=== PATIENT | female | born 1945 | race Caucasian/White ===

== ENCOUNTER → 2017-08-22 | Outpatient (CLI) | payer MEDICARE | END | disposition home or self-care (01) | LOC: CFH 13:39 | PROVIDERS: ATTEND Internal Medicine Cardiovascular Disease | DX: I08.3 Combined rheumatic disorders of mitral, aortic and tricuspid valves (principal) | CPT/HCPCS: 93306 ==

== ENCOUNTER 2018-04-02 07:43 | Day surgery (SDC) | payer MEDICARE ==
[~2018-04-02] VITALS: Ht 177.8 cm; Wt 109.1 kg
[2018-04-02] MEDS ORDERED: SODIUM CHLORIDE 0.9% 1,000 ML IV ONE (08:19)
[2018-04-02 08:22] VITALS: BP 116/77
[2018-04-02] MEDS ORDERED: DIPHENHYDRAMINE 50 MG/ML, 1ML IVPush ONE (08:30)
[2018-04-02] MEDS ORDERED: METO50TA4 PO (08:43)
[2018-04-02] MEDS ORDERED: ASPI-621 PO (08:43)
[2018-04-02] MEDS ORDERED: GLIP5TAB22 PO (08:43)
[2018-04-02] MEDS ORDERED: FINA5TAB4 PO (08:43)
[2018-04-02] MEDS ORDERED: TAMS0.4C2 PO (08:43)
[2018-04-02] MEDS ORDERED: FENO134C PO (08:43)
[2018-04-02] MEDS ORDERED: CHOL5000 PO (08:43)
[2018-04-02] MEDS ORDERED: ATOR20TA9 PO (08:43)
[2018-04-02] MEDS ORDERED: AMLO5TAB2 PO (08:43)
[2018-04-02] MEDS ORDERED: ENAL20TA PO (08:43)
[2018-04-02] MEDS ORDERED: DIPHENHYDRAMINE 50 MG/ML, 1ML ONE (08:54)
[2018-04-02] MEDS ORDERED: MIDAZOLAM 1 MG/ML, 5ML ONE (09:50)
[2018-04-02] MEDS ORDERED: FENTANYL PF 100 MCG/2ML ONE (09:50)
[2018-04-02] MEDS ORDERED: TICAGRELOR 90 MG TABLET ONE (09:50)
[2018-04-02] MEDS ORDERED: VERAPAMIL 2.5 MG/ML, 2ML ONE (09:50)
[2018-04-02] MEDS ORDERED: HEPARIN 1,000 UNITS/ML, 10ML ONE (09:51)
[2018-04-02] MEDS ORDERED: BIVALIRUDIN 250 MG ONE (09:51)
[2018-04-02] MEDS ORDERED: LIDOCAINE 2%, 2ML ONE (09:51)
[2018-04-02] MEDS ORDERED: SODIUM CHLORIDE 0.9% 1,000 ML IV SCH (11:09)
== END 2018-04-02 13:59 ==
LOC: CACL 07:43
PROVIDERS: ATTEND Internal Medicine Cardiovascular Disease
DX: I25.10 Atherosclerotic heart disease of native coronary artery without angina pectoris (principal); I10 Essential (primary) hypertension; E78.2 Mixed hyperlipidemia; E11.9 Type 2 diabetes mellitus without complications; Z79.82 Long term (current) use of aspirin
CPT/HCPCS: 93456; 99156; 99157; C1769; C1894; J1200; J1644; J2250; J3010; J3490; Q9967; J0583

== ENCOUNTER → 2018-04-05 | Outpatient (CLI) | payer MEDICARE ==
[~2018-04-05] MED LIST: AMLO5TAB2 PO; ASPI-621 PO; ATOR20TA9 PO; CHOL5000 PO; ENAL20TA PO; FENO134C PO; FINA5TAB4 PO; GLIP5TAB22 PO; METO50TA4 PO; TAMS0.4C2 PO
== END | disposition home or self-care (01) ==
LOC: CARD 14:20
PROVIDERS: ATTEND Thoracic Surgery (Cardiothoracic Vascular Surgery)
DX: Z01.811 Encounter for preprocedural respiratory examination (principal); R06.02 Shortness of breath
CPT/HCPCS: 94010; 94060

== ENCOUNTER 2018-04-11 04:08 | Inpatient (IN) | payer MEDICARE ==
[2018-04-10 14:42] LABS: MICROSCOPIC AUTO
[2018-04-10 15:56] LABS: BASOPHILS # (AUTO) 0.04 x10^3/uL (0-0.1); BASOPHILS % (AUTO) 1 % (0-1); EOSINOPHILS # (AUTO) 0.27 x10^3/uL (0-0.4); EOSINOPHILS % (AUTO) 3 % (1-7); LYMPHOCYTES # (AUTO) 2.64 x10^3/uL (1-3.4); LYMPHOCYTES % (AUTO) 31 % (22-44); MD NO; MEAN CORPUSCULAR HEMOGLOBIN 30.8 pg (27.0-34.8); MEAN CORPUSCULAR HGB CONC 33.6 g/dL (32.4-35.8); MEAN CORPUSCULAR VOLUME 91.9 fL (80-100); MEAN PLATELET VOLUME 9.4 fL (7.4-10.4); MONOCYTES # (AUTO) 0.63 x10^3/uL (0.2-0.8); MONOCYTES % (AUTO) 7 % (2-9); NEUTROPHILS # (AUTO) 4.97 x10^3/uL (1.8-6.8); NEUTROPHILS % (AUTO) 58 % (42-75); PLATELET COUNT 277 x10^3/uL (130-400); RED BLOOD COUNT 4.78 x10^6/uL (3.82-5.3); RED CELL DISTRIBUTION WIDTH 15.1 % (9.6-15.2)
[2018-04-10 16:04] LABS: INTERNATIONAL NORMALIZED RATIO 0.96 (0.93-1.1)
[2018-04-10 16:09] LABS: ALBUMIN 3.8 g/dL (3.4-5.0); ANION GAP 8 mmol/L (5-15); CALCIUM 9.3 mg/dL (8.5-10.1); CHLORIDE 111 mmol/L (98-107)
[2018-04-10 16:21] LABS: ALANINE AMINOTRANSFERASE 35 U/L (12-78); ALKALINE PHOSPHATASE 50 U/L (45-117); BILIRUBIN,TOTAL 0.3 mg/dL (0.2-1.0); CREATININE 1.45 mg/dL (0.55-1.02); TOTAL PROTEIN 7.3 g/dL (6.4-8.2)
[2018-04-10 16:34] LABS: HEMOGLOBIN A1C 6.8 % (4.2-6.3)
[~2018-04-11] VITALS: Ht 180.3 cm; Wt 120.0 kg
[2018-04-11] MEDS ORDERED: ALBUMIN HUMAN 5% 500 ML IV PRN (04:30)
[2018-04-11] MEDS ORDERED: INSULIN LISPRO 100 UNITS/ML, PEN SQ-INSULIN SCH (04:30)
[2018-04-11] MEDS ORDERED: CHLORHEXIDINE 15 ML BOTTLE MM SCH (04:30)
[2018-04-11 04:35] VITALS: BP_SYST 109; BP_SYST 137; BP_DIAS 67; BP_DIAS 84
[2018-04-11] MEDS ORDERED: PAPAVERINE 30 MG/ML, 2ML ONE (07:09)
[2018-04-11] MEDS ORDERED: HEPARIN 1,000 UNITS/ML, 10ML ONE (07:09)
[2018-04-11] MEDS ORDERED: THROMBIN 5,000 UNIT VIAL TP ONE ×2 (07:09→09:00)
[2018-04-11] MEDS ORDERED: MIDAZOLAM 10MG/2 ML ONE (07:25)
[2018-04-11] MEDS ORDERED: SUFentanil 50 MCG/ML, 5ML ONE (07:25)
[2018-04-11] MEDS ORDERED: DEXMEDETOMIDINE 200 MCG in SODIUM CHLORIDE 0.9% 48 ML IV SCH (07:30)
[2018-04-11] MEDS ORDERED: REGULAR INSULIN 62.5 UNITS in SODIUM CHLORIDE 0.9% 249.375 ML IV PRN ×2 (07:30→14:15)
[2018-04-11] MEDS ORDERED: MANNITOL PMX 20% 500 ML IVPB PRN (07:30)
[2018-04-11] MEDS ORDERED: PHENYLEPHRINE 10 MG in SODIUM CHLORIDE 0.9% 249 ML IV PRN ×2 (07:30→14:15)
[2018-04-11] MEDS ORDERED: EPINEPHRINE 2 MG in SODIUM CHLORIDE 0.9% 248 ML IV SCH (07:30)
[2018-04-11] MEDS ORDERED: POTASSIUM CHLORIDE 80 MEQ, SODIUM BICARBONATE 8.4% 10 MEQ, MAGNESIUM SULFATE 0.5 GM, LI... IV PRN (07:30)
[2018-04-11] MEDS ORDERED: FENTANYL PF 250 MCG/5ML ONE (07:46)
[2018-04-11] MEDS ORDERED: VASOPRESSIN 20 UNIT/ML, 1ML ONE ×2 (07:46→09:05)
[2018-04-11] MEDS ORDERED: ALBUTEROL SULFATE 200 PUFFS/8.5 GR INH ONE (07:46)
[2018-04-11] MEDS ORDERED: PAPAVERINE 30 MG/ML, 2ML IVPush ONE (08:58)
[2018-04-11] MEDS ORDERED: HEPARIN 1,000 UNITS/ML, 10ML IV ONE (08:59)
[2018-04-11] MEDS: SODIUM CHLORIDE FLUSH 10ML SYR IVF SCH ×3 (09:00→21:02)
[2018-04-11] MEDS ORDERED: MUPIROCIN OINT 2%, 22GM TP SCH (09:00)
[2018-04-11] MEDS ORDERED: PROPOFOL 10 MG/ML, 20ML ONE (11:16)
[2018-04-11] MEDS ORDERED: ROCURONIUM 10MG/ML,5ML ONE ×2 (11:16)
[2018-04-11] MEDS ORDERED: AMINOCAPROIC ACID 250 MG/ML, 20ML ONE ×2 (11:16)
[2018-04-11] MEDS ORDERED: PROTAMINE SULFATE 10 MG/ML, 25ML ONE ×2 (11:16→11:17)
[2018-04-11] MEDS ORDERED: CALCIUM CHLORIDE 10%, 10ML SYR ONE ×2 (14:06→14:07)
[2018-04-11] MEDS ORDERED: SODIUM BICARBONATE 1 MEQ/ML, 50ML VIAL ONE (14:07)
[2018-04-11] MEDS ORDERED: LIDOCAINE 2% 100MG/5ML SYRINGE ONE (14:07)
[2018-04-11] MEDS ORDERED: HEPARIN 1,000 UNITS/ML, 30ML ONE (14:08)
[2018-04-11] MEDS ORDERED: ALBUMIN HUMAN 25% 50 ML ONE (14:08)
[2018-04-11] MEDS ORDERED: DOBUTAMINE 250 MG in SODIUM CHLORIDE 0.9% 230 ML IV PRN (14:15)
[2018-04-11] MEDS ORDERED: DEXMEDETOMIDINE 200 MCG in SODIUM CHLORIDE 0.9% 48 ML IV PRN (14:15)
[2018-04-11] MEDS ORDERED: SODIUM CHLORIDE 0.9% 1,000 ML IV PRN (14:15)
[2018-04-11] MEDS ORDERED: NITROGLYCERIN/D5W PMX 250 ML IV PRN (14:15)
[2018-04-11] MEDS ORDERED: DEXTROSE 50%, 50ML SYRINGE IVPush PRN (14:30)
[2018-04-11] MEDS ORDERED: GLUCAGON 1 MG IM PRN (14:30)
[2018-04-11] MEDS ORDERED: BISACODYL 5 MG EC TABLET PO PRN (14:30)
[2018-04-11] MEDS ORDERED: PROCHLORPERAZINE 5 MG/ML, 2ML IVPush PRN (14:30)
[2018-04-11] MEDS ORDERED: INSULIN REGULAR 100 UNITS/ML, 3ML VIAL IVPush PRN (14:30)
[2018-04-11] MEDS ORDERED: BISACODYL 10 MG SUPP PR PRN (14:30)
[2018-04-11] MEDS ORDERED: EPINEPHRINE 2 MG in SODIUM CHLORIDE 0.9% 248 ML IV PRN (14:30)
[2018-04-11] MEDS ORDERED: DEXTROSE 4 GM TAB.CHEW PO PRN (14:30)
[2018-04-11] MEDS ORDERED: SODIUM BICARB 8.4%, 50ML SYRINGE IV PRN (14:30)
[2018-04-11] MEDS ORDERED: ACETAMINOPHEN 650 MG SUPP PR PRN (14:30)
[2018-04-11] MEDS ORDERED: MIDAZOLAM 1 MG/ML, 5ML IVPush PRN (14:30)
[2018-04-11 14:57] LABS: GLUCOSE BY BLOOD GAS ANALYZER 159 mg/dL (70-110); HEMOGLOBIN BY BLOOD GAS ANALYZ 10.7 g/dL (14.0-18.0); POTASSIUM BY BLOOD GAS ANALYZR 4.1 mmol/L (3.6-5.5)
[2018-04-11] MEDS ORDERED: MAGNESIUM SULFATE 1 GM in SODIUM CHLORIDE 0.9% 50 ML IVPB SCH (15:00)
[2018-04-11] MEDS ORDERED: VASOPRESSIN 50 UNIT in SODIUM CHLORIDE 0.9% 247.5 ML IV PRN (15:00)
[2018-04-11] MEDS: KSCALE TO 4.5 IV SCH ×2 (15:00→21:00)
[2018-04-11 15:07] LABS: INTERNATIONAL NORMALIZED RATIO 1.32 (0.93-1.1); PROTHROMBIN TIME 13.7 Seconds (9.6-11.5)
[2018-04-11] MEDS: INSULIN LISPRO 100 UNITS/ML, PEN SQ-INSULIN SCH ×2 (16:00→21:00)
[2018-04-11] MEDS: MAGNESIUM SULFATE PMX 2GM/50ML 25 ML IVPB SCH (16:46)
[2018-04-11] MEDS: LACTATED RINGERS 1,000 ML IV PRN ×2 (17:17→17:44)
[2018-04-11] MEDS ORDERED: LACTATED RINGERS 1,000 ML IVBOLUS ONE (18:00)
[2018-04-11] MEDS: VANCOMYCIN 1,600 MG in SODIUM CHLORIDE 0.9% 250 ML IVPB SCH (18:41)
[2018-04-11] MEDS: DOCUSATE 100 MG CAPSULE PO SCH (21:00)
[2018-04-11] MEDS: MUPIROCIN OINT 2%, 22GM NAS SCH (21:03)
[2018-04-11] MEDS: morphine SULFATE 10 MG/ML, 1ML IVPush PRN ×2 (22:02→23:44)
[2018-04-12] MEDS: OXYcodone IR 5MG TABLET PO PRN ×7 (00:45→21:37)
[2018-04-12] MEDS: INSULIN LISPRO 100 UNITS/ML, PEN SQ-INSULIN SCH ×5 (02:50→21:37)
[2018-04-12] MEDS: morphine SULFATE 10 MG/ML, 1ML IVPush PRN ×2 (02:50→06:26)
[2018-04-12] MEDS: KSCALE TO 4.5 IV SCH ×2 (02:53→09:00)
[2018-04-12 05:05] LABS: BASOPHILS % (AUTO) 0 % (0-1); EOSINOPHILS % (AUTO) 0 % (1-7); LYMPHOCYTES # (AUTO) 1.17 x10^3/uL (1-3.4); LYMPHOCYTES % (AUTO) 7 % (22-44); MD NO; MEAN CORPUSCULAR HEMOGLOBIN 30.8 pg (27.0-34.8); MEAN CORPUSCULAR HGB CONC 34.1 g/dL (32.4-35.8); MEAN CORPUSCULAR VOLUME 90.3 fL (80-100); MEAN PLATELET VOLUME 9.7 fL (7.4-10.4); MONOCYTES # (AUTO) 0.95 x10^3/uL (0.2-0.8); MONOCYTES % (AUTO) 6 % (2-9); NEUTROPHILS # (AUTO) 13.77 x10^3/uL (1.8-6.8); NEUTROPHILS % (AUTO) 87 % (42-75); PLATELET COUNT 141 x10^3/uL (130-400); RED BLOOD COUNT 3.28 x10^6/uL (3.82-5.3); RED CELL DISTRIBUTION WIDTH 15.1 % (9.6-15.2)
[2018-04-12 05:09] LABS: ALBUMIN 2.6 g/dL (3.4-5.0); ANION GAP 8 mmol/L (5-15); CALCIUM 7.9 mg/dL (8.5-10.1); CHLORIDE 111 mmol/L (98-107); CREATININE 1.33 mg/dL (0.55-1.02)
[2018-04-12 05:12] LABS: INTERNATIONAL NORMALIZED RATIO 1.04 (0.93-1.1); PROTHROMBIN TIME 10.8 Seconds (9.6-11.5)
[2018-04-12 06:20] LABS: MICROSCOPIC INDICATED
[2018-04-12 06:22] LABS: CULTURE INDICATED? NO
[2018-04-12] MEDS: VANCOMYCIN 1,600 MG in SODIUM CHLORIDE 0.9% 250 ML IVPB SCH (06:23)
[2018-04-12] MEDS ORDERED: VANCOMYCIN 1,700 MG in SODIUM CHLORIDE 0.9% 250 ML IV PRN (07:30)
[2018-04-12] MEDS ORDERED: CEFUROXIME 1.5 GM in SODIUM CHLORIDE 0.9% 50 ML IVPB PRN (07:30)
[2018-04-12] MEDS: ASPIRIN 81 MG TABLET EC PO SCH (08:28)
[2018-04-12] MEDS: DOCUSATE 100 MG CAPSULE PO SCH ×2 (08:28→20:12)
[2018-04-12] MEDS: MUPIROCIN OINT 2%, 22GM NAS SCH ×2 (08:28→20:12)
[2018-04-12] MEDS: SODIUM CHLORIDE FLUSH 10ML SYR IVF SCH ×4 (09:00→20:12)
[2018-04-12] MEDS: WARFARIN BIOPROSTHETIC VALVE PROTOCOL 2-3 XX SCH (09:00)
[2018-04-12] MEDS: ONDANSETRON 2MG/ML, 2ML IVPush PRN ×2 (09:14→21:38)
[2018-04-12] MEDS: MAGNESIUM SULFATE PMX 2GM/50ML 25 ML IVPB SCH (15:35)
[2018-04-12] MEDS: CHLORHEXIDINE 15 ML BOTTLE MM SCH (15:35)
[2018-04-12] MEDS: POTASSIUM CHLORIDE 20 MEQ TAB.ER.PRT PO SCH (17:29)
[2018-04-12] MEDS: FUROSEMIDE 20 MG/2 ML IV SCH (17:30)
[2018-04-12] MEDS ORDERED: WARFARIN 5 MG TABLET PO-COUM SCH (18:00)
[2018-04-13] MEDS: OXYcodone IR 5MG TABLET PO PRN ×8 (00:30→22:46)
[2018-04-13] MEDS: INSULIN LISPRO 100 UNITS/ML, PEN SQ-INSULIN SCH ×6 (02:22→23:10)
[2018-04-13] MEDS: CHLORHEXIDINE 15 ML BOTTLE MM SCH ×3 (02:23→20:43)
[2018-04-13 04:00] VITALS: BP 128/62
[2018-04-13] MEDS: ACETAMINOPHEN 325 MG TABLET PO PRN (04:24)
[2018-04-13 04:50] LABS: MEAN CORPUSCULAR HEMOGLOBIN 30.6 pg (27.0-34.8); MEAN CORPUSCULAR HGB CONC 33.3 g/dL (32.4-35.8); MEAN CORPUSCULAR VOLUME 91.8 fL (80-100); MEAN PLATELET VOLUME 9.6 fL (7.4-10.4); PLATELET COUNT 140 x10^3/uL (130-400); RED BLOOD COUNT 3.22 x10^6/uL (3.82-5.3); RED CELL DISTRIBUTION WIDTH 15.1 % (9.6-15.2)
[2018-04-13 04:55] LABS: INTERNATIONAL NORMALIZED RATIO 1.02 (0.93-1.1); PROTHROMBIN TIME 10.5 Seconds (9.6-11.5)
[2018-04-13 04:56] LABS: ANION GAP 6 mmol/L (5-15); CHLORIDE 105 mmol/L (98-107); CREATININE 1.54 mg/dL (0.55-1.02)
[2018-04-13 05:39] LABS: BASOPHILS # (AUTO) 0.06 x10^3/uL (0-0.1); BASOPHILS % (AUTO) 0 % (0-1); EOSINOPHILS % (AUTO) 0 % (1-7); LYMPHOCYTES # (AUTO) 1.88 x10^3/uL (1-3.4); LYMPHOCYTES % (AUTO) 9 % (22-44); MD SCAN; MONOCYTES # (AUTO) 1.79 x10^3/uL (0.2-0.8); MONOCYTES % (AUTO) 8 % (2-9); NEUTROPHILS # (AUTO) 17.73 x10^3/uL (1.8-6.8); NEUTROPHILS % (AUTO) 83 % (42-75)
[2018-04-13] MEDS: SODIUM CHLORIDE FLUSH 10ML SYR IVF SCH ×4 (07:47→20:43)
[2018-04-13] MEDS: FUROSEMIDE 20 MG/2 ML IV SCH ×2 (08:31→17:09)
[2018-04-13] MEDS: ASPIRIN 81 MG TABLET EC PO SCH (08:32)
[2018-04-13] MEDS: FINASTERIDE 5 MG TABLET PO SCH (08:32)
[2018-04-13] MEDS: ONDANSETRON 2MG/ML, 2ML IVPush PRN (08:32)
[2018-04-13] MEDS: FENOFIBRATE 145 MG TABLET PO SCH (08:32)
[2018-04-13] MEDS: METOCLOPRAMIDE 10MG TABLET PO SCH ×4 (08:33→20:43)
[2018-04-13] MEDS: TAMSULOSIN 0.4 MG CAP.ER.24H PO SCH ×2 (08:33→20:44)
[2018-04-13] MEDS: DOCUSATE 100 MG CAPSULE PO SCH ×2 (08:33→20:44)
[2018-04-13] MEDS: POTASSIUM CHLORIDE 20 MEQ TAB.ER.PRT PO SCH ×2 (08:33→17:09)
[2018-04-13] MEDS: MUPIROCIN OINT 2%, 22GM NAS SCH ×2 (08:33→20:44)
[2018-04-13] MEDS: WARFARIN BIOPROSTHETIC VALVE PROTOCOL 2-3 XX SCH (09:00)
[2018-04-13] MEDS ORDERED: ALBUTEROL SULFATE 2.5 MG/3 ML ONE (13:47)
[2018-04-13] MEDS ORDERED: ALBUTEROL SULFATE 2.5 MG/3 ML NPPB SCH (15:00)
[2018-04-13] MEDS: MAGNESIUM SULFATE PMX 2GM/50ML 25 ML IVPB SCH (16:03)
[2018-04-13] MEDS: ENOXAPARIN 40 MG/0.4 ML SQ SCH (16:04)
[2018-04-13] MEDS ORDERED: LORATADINE 10 MG TABLET PO ONE (17:00)
[2018-04-13] MEDS ORDERED: WARFARIN 5 MG TABLET PO-COUM SCH (18:00)
[2018-04-13] MEDS: ALBUTEROL SULFATE 2.5 MG/3 ML NPPB SCH (20:33)
[2018-04-13] MEDS: GUAIFENESIN ER 600 MG TABLET PO SCH (20:43)
[2018-04-13] MEDS: ATORVASTATIN 20 MG TABLET PO SCH (20:44)
[2018-04-14] MEDS: OXYcodone IR 5MG TABLET PO PRN ×6 (02:34→22:07)
[2018-04-14] MEDS: INSULIN LISPRO 100 UNITS/ML, PEN SQ-INSULIN SCH ×5 (03:40→19:41)
[2018-04-14 05:07] LABS: MEAN CORPUSCULAR VOLUME 91.1 fL (80-100); MEAN PLATELET VOLUME 9.8 fL (7.4-10.4); PLATELET COUNT 144 x10^3/uL (130-400); RED BLOOD COUNT 2.97 x10^6/uL (3.82-5.3); RED CELL DISTRIBUTION WIDTH 14.9 % (9.6-15.2)
[2018-04-14 05:08] LABS: INTERNATIONAL NORMALIZED RATIO 1.36 (0.93-1.1); PROTHROMBIN TIME 13.9 Seconds (9.6-11.5)
[2018-04-14 05:16] LABS: ANION GAP 4 mmol/L (5-15); CALCIUM 7.9 mg/dL (8.5-10.1); CHLORIDE 101 mmol/L (98-107)
[2018-04-14 05:17] LABS: CREATININE 1.46 mg/dL (0.55-1.02)
[2018-04-14] MEDS: METOCLOPRAMIDE 10MG TABLET PO SCH ×4 (05:45→20:20)
[2018-04-14] MEDS: ALBUTEROL SULFATE 2.5 MG/3 ML NPPB SCH ×4 (05:47→19:40)
[2018-04-14 06:00] LABS: BASOPHILS # (AUTO) 0.01 x10^3/uL (0-0.1); BASOPHILS % (AUTO) 0 % (0-1); EOSINOPHILS % (AUTO) 0 % (1-7); LYMPHOCYTES # (AUTO) 1.83 x10^3/uL (1-3.4); LYMPHOCYTES % (AUTO) 10 % (22-44); MD SCAN; MONOCYTES # (AUTO) 0.38 x10^3/uL (0.2-0.8); MONOCYTES % (AUTO) 2 % (2-9); NEUTROPHILS % (AUTO) 88 % (42-75)
[2018-04-14] MEDS: FUROSEMIDE 40 MG/4 ML IV SCH ×2 (07:34→16:17)
[2018-04-14] MEDS: TAMSULOSIN 0.4 MG CAP.ER.24H PO SCH ×2 (08:44→19:50)
[2018-04-14] MEDS: LORATADINE 10 MG TABLET PO SCH (08:44)
[2018-04-14] MEDS: DOCUSATE 100 MG CAPSULE PO SCH ×2 (08:44→19:52)
[2018-04-14] MEDS: POTASSIUM CHLORIDE 20 MEQ TAB.ER.PRT PO SCH ×2 (08:44→16:16)
[2018-04-14] MEDS: ASPIRIN 81 MG TABLET EC PO SCH (08:44)
[2018-04-14] MEDS: GUAIFENESIN ER 600 MG TABLET PO SCH ×2 (08:44→19:50)
[2018-04-14] MEDS: FINASTERIDE 5 MG TABLET PO SCH (08:45)
[2018-04-14] MEDS: FENOFIBRATE 145 MG TABLET PO SCH (08:45)
[2018-04-14] MEDS: ENOXAPARIN 40 MG/0.4 ML SQ SCH (08:45)
[2018-04-14] MEDS: MUPIROCIN OINT 2%, 22GM NAS SCH ×2 (08:54→19:50)
[2018-04-14] MEDS: SODIUM CHLORIDE FLUSH 10ML SYR IVF SCH ×4 (08:54→19:50)
[2018-04-14] MEDS: WARFARIN BIOPROSTHETIC VALVE PROTOCOL 2-3 XX SCH (08:54)
[2018-04-14] MEDS: PIPERACILLIN/TAZO/PMX 3.375GM 50 ML IV SCH ×3 (10:57→21:40)
[2018-04-14] MEDS ORDERED: WARFARIN 5 MG TABLET PO-COUM SCH (18:00)
[2018-04-14] MEDS: ATORVASTATIN 20 MG TABLET PO SCH (19:50)
[2018-04-14] MEDS: MELATONIN 5 MG TABLET PO SCH (19:50)
[2018-04-15] MEDS: OXYcodone IR 5MG TABLET PO PRN ×8 (00:09→22:38)
[2018-04-15] MEDS: INSULIN LISPRO 100 UNITS/ML, PEN SQ-INSULIN SCH ×6 (03:52→21:11)
[2018-04-15] MEDS: PIPERACILLIN/TAZO/PMX 3.375GM 50 ML IV SCH ×4 (03:53→21:17)
[2018-04-15 05:24] LABS: INTERNATIONAL NORMALIZED RATIO 1.78 (0.93-1.1); PROTHROMBIN TIME 18.1 Seconds (9.6-11.5)
[2018-04-15 05:30] LABS: ANION GAP 6 mmol/L (5-15); CALCIUM 7.4 mg/dL (8.5-10.1); CHLORIDE 99 mmol/L (98-107)
[2018-04-15 05:37] LABS: BASOPHILS # (AUTO) 0.04 x10^3/uL (0-0.1); BASOPHILS % (AUTO) 0 % (0-1); EOSINOPHILS # (AUTO) 0.05 x10^3/uL (0-0.4); EOSINOPHILS % (AUTO) 0 % (1-7); LYMPHOCYTES # (AUTO) 1.72 x10^3/uL (1-3.4); LYMPHOCYTES % (AUTO) 13 % (22-44); MD NO; MEAN CORPUSCULAR HEMOGLOBIN 30.4 pg (27.0-34.8); MEAN CORPUSCULAR HGB CONC 33.6 g/dL (32.4-35.8); MEAN CORPUSCULAR VOLUME 90.5 fL (80-100); MEAN PLATELET VOLUME 9.5 fL (7.4-10.4); MONOCYTES # (AUTO) 1.17 x10^3/uL (0.2-0.8); MONOCYTES % (AUTO) 9 % (2-9); NEUTROPHILS # (AUTO) 10.13 x10^3/uL (1.8-6.8); NEUTROPHILS % (AUTO) 77 % (42-75); PLATELET COUNT 171 x10^3/uL (130-400); RED BLOOD COUNT 2.74 x10^6/uL (3.82-5.3); RED CELL DISTRIBUTION WIDTH 15.2 % (9.6-15.2)
[2018-04-15 05:56] LABS: CREATININE 1.52 mg/dL (0.55-1.02)
[2018-04-15] MEDS: ALBUTEROL SULFATE 2.5 MG/3 ML NPPB SCH ×4 (07:00→19:56)
[2018-04-15] MEDS: FUROSEMIDE 40 MG/4 ML IV SCH ×2 (07:55→16:57)
[2018-04-15] MEDS: METOCLOPRAMIDE 10MG TABLET PO SCH ×4 (07:55→21:07)
[2018-04-15] MEDS: POTASSIUM CHLORIDE 20 MEQ TAB.ER.PRT PO SCH ×2 (07:55→16:57)
[2018-04-15] MEDS: SODIUM CHLORIDE FLUSH 10ML SYR IVF SCH ×4 (07:56→21:10)
[2018-04-15] MEDS: WARFARIN BIOPROSTHETIC VALVE PROTOCOL 2-3 XX SCH (09:00)
[2018-04-15] MEDS: FINASTERIDE 5 MG TABLET PO SCH (10:07)
[2018-04-15] MEDS: ASPIRIN 81 MG TABLET EC PO SCH (10:08)
[2018-04-15] MEDS: GUAIFENESIN ER 600 MG TABLET PO SCH ×2 (10:08→21:07)
[2018-04-15] MEDS: DOCUSATE 100 MG CAPSULE PO SCH ×2 (10:08→21:07)
[2018-04-15] MEDS: TAMSULOSIN 0.4 MG CAP.ER.24H PO SCH ×2 (10:08→21:07)
[2018-04-15] MEDS: FENOFIBRATE 145 MG TABLET PO SCH (10:08)
[2018-04-15] MEDS: AMLODIPINE 5 MG TABLET PO SCH (10:08)
[2018-04-15] MEDS: LORATADINE 10 MG TABLET PO SCH (10:08)
[2018-04-15] MEDS: MUPIROCIN OINT 2%, 22GM NAS SCH ×2 (10:11→21:08)
[2018-04-15] MEDS: ENOXAPARIN 40 MG/0.4 ML SQ SCH (10:11)
[2018-04-15] MEDS: GLIPizide ER 5 MG TABLET PO SCH (11:36)
[2018-04-15] MEDS: ACETAMINOPHEN 325 MG TABLET PO PRN (13:44)
[2018-04-15] MEDS ORDERED: WARFARIN 7.5 MG TABLET PO-COUM SCH (18:00)
[2018-04-15] MEDS: ATORVASTATIN 20 MG TABLET PO SCH (21:08)
[2018-04-15] MEDS: MELATONIN 5 MG TABLET PO SCH (21:08)
[2018-04-16] MEDS: OXYcodone IR 5MG TABLET PO PRN ×8 (01:32→21:26)
[2018-04-16] MEDS: PIPERACILLIN/TAZO/PMX 3.375GM 50 ML IV SCH ×4 (04:16→21:30)
[2018-04-16 04:44] LABS: MEAN CORPUSCULAR HEMOGLOBIN 30.9 pg (27.0-34.8); MEAN CORPUSCULAR HGB CONC 33.7 g/dL (32.4-35.8); MEAN CORPUSCULAR VOLUME 91.7 fL (80-100); MEAN PLATELET VOLUME 9.3 fL (7.4-10.4); PLATELET COUNT 240 x10^3/uL (130-400); RED BLOOD COUNT 2.89 x10^6/uL (3.82-5.3); RED CELL DISTRIBUTION WIDTH 15.1 % (9.6-15.2)
[2018-04-16 04:46] LABS: ANION GAP 5 mmol/L (5-15); CALCIUM 7.8 mg/dL (8.5-10.1); CHLORIDE 96 mmol/L (98-107); CREATININE 1.63 mg/dL (0.55-1.02)
[2018-04-16 04:58] LABS: INTERNATIONAL NORMALIZED RATIO 1.99 (0.93-1.1); PROTHROMBIN TIME 20.2 Seconds (9.6-11.5)
[2018-04-16 05:29] LABS: BASOPHILS # (AUTO) 0.14 x10^3/uL (0-0.1); BASOPHILS % (AUTO) 1 % (0-1); EOSINOPHILS # (AUTO) 0.11 x10^3/uL (0-0.4); EOSINOPHILS % (AUTO) 1 % (1-7); LYMPHOCYTES # (AUTO) 2.37 x10^3/uL (1-3.4); LYMPHOCYTES % (AUTO) 18 % (22-44); MD SCAN; MONOCYTES # (AUTO) 1.54 x10^3/uL (0.2-0.8); MONOCYTES % (AUTO) 12 % (2-9); NEUTROPHILS # (AUTO) 9.31 x10^3/uL (1.8-6.8); NEUTROPHILS % (AUTO) 69 % (42-75)
[2018-04-16] MEDS: ALBUTEROL SULFATE 2.5 MG/3 ML NPPB SCH ×4 (06:53→20:00)
[2018-04-16] MEDS: INSULIN LISPRO 100 UNITS/ML, PEN SQ-INSULIN SCH ×4 (07:00→21:00)
[2018-04-16] MEDS: FINASTERIDE 5 MG TABLET PO SCH (08:25)
[2018-04-16] MEDS: GUAIFENESIN ER 600 MG TABLET PO SCH ×2 (08:25→21:26)
[2018-04-16] MEDS: POTASSIUM CHLORIDE 20 MEQ TAB.ER.PRT PO SCH ×2 (08:25→17:00)
[2018-04-16] MEDS: METOCLOPRAMIDE 10MG TABLET PO SCH ×4 (08:26→21:26)
[2018-04-16] MEDS: AMLODIPINE 5 MG TABLET PO SCH (08:26)
[2018-04-16] MEDS: FUROSEMIDE 40 MG/4 ML IV SCH ×2 (08:28→16:59)
[2018-04-16] MEDS: ASPIRIN 81 MG TABLET EC PO SCH (08:28)
[2018-04-16] MEDS: DOCUSATE 100 MG CAPSULE PO SCH ×2 (08:28→21:26)
[2018-04-16] MEDS: FENOFIBRATE 145 MG TABLET PO SCH (08:28)
[2018-04-16] MEDS: LORATADINE 10 MG TABLET PO SCH (08:28)
[2018-04-16] MEDS: GLIPizide ER 5 MG TABLET PO SCH (08:28)
[2018-04-16] MEDS: MUPIROCIN OINT 2%, 22GM NAS SCH (08:29)
[2018-04-16] MEDS: ENOXAPARIN 40 MG/0.4 ML SQ SCH (08:29)
[2018-04-16] MEDS: WARFARIN BIOPROSTHETIC VALVE PROTOCOL 2-3 XX SCH (09:00)
[2018-04-16] MEDS: SODIUM CHLORIDE FLUSH 10ML SYR IVF SCH ×4 (09:00→21:26)
[2018-04-16] MEDS: TAMSULOSIN 0.4 MG CAP.ER.24H PO SCH ×2 (10:19→21:28)
[2018-04-16] MEDS ORDERED: WARFARIN 5 MG TABLET PO-COUM ONE (18:00)
[2018-04-16] MEDS: MELATONIN 5 MG TABLET PO SCH (21:26)
[2018-04-16] MEDS: ATORVASTATIN 20 MG TABLET PO SCH (21:26)
[2018-04-17] MEDS: OXYcodone IR 5MG TABLET PO PRN ×8 (00:28→22:30)
[2018-04-17] MEDS: PIPERACILLIN/TAZO/PMX 3.375GM 50 ML IV SCH ×4 (03:34→22:38)
[2018-04-17 04:02] LABS: ANION GAP 6 mmol/L (5-15); CHLORIDE 96 mmol/L (98-107); CREATININE 1.74 mg/dL (0.55-1.02)
[2018-04-17 05:56] LABS: INTERNATIONAL NORMALIZED RATIO 2.41 (0.93-1.1); PROTHROMBIN TIME 24.4 Seconds (9.6-11.5)
[2018-04-17] MEDS: ASPIRIN 81 MG TABLET EC PO SCH (06:27)
[2018-04-17] MEDS: INSULIN LISPRO 100 UNITS/ML, PEN SQ-INSULIN SCH ×4 (07:00→20:56)
[2018-04-17] MEDS ORDERED: MAGNESIUM HYDROXIDE 8%, 30ML UDC PO ONE (07:30)
[2018-04-17] MEDS ORDERED: MAGNESIUM HYDROXIDE 8%, 30ML UDC PO PRN (07:30)
[2018-04-17] MEDS: ALBUTEROL SULFATE 2.5 MG/3 ML NPPB SCH ×4 (07:49→20:59)
[2018-04-17 08:15] VITALS: BP 138/67
[2018-04-17] MEDS: WARFARIN BIOPROSTHETIC VALVE PROTOCOL 2-3 XX SCH (08:51)
[2018-04-17] MEDS: SODIUM CHLORIDE FLUSH 10ML SYR IVF SCH ×5 (09:00→20:57)
[2018-04-17] MEDS: FENOFIBRATE 145 MG TABLET PO SCH (09:00)
[2018-04-17] MEDS: AMLODIPINE 5 MG TABLET PO SCH (09:30)
[2018-04-17] MEDS: LORATADINE 10 MG TABLET PO SCH (09:31)
[2018-04-17] MEDS: FINASTERIDE 5 MG TABLET PO SCH (09:31)
[2018-04-17] MEDS: DOCUSATE 100 MG CAPSULE PO SCH ×2 (09:31→20:49)
[2018-04-17] MEDS: GUAIFENESIN ER 600 MG TABLET PO SCH ×2 (09:32→20:50)
[2018-04-17] MEDS: GLIPizide ER 5 MG TABLET PO SCH (09:32)
[2018-04-17] MEDS: TAMSULOSIN 0.4 MG CAP.ER.24H PO SCH ×2 (09:32→20:50)
[2018-04-17] MEDS: ENOXAPARIN 40 MG/0.4 ML SQ SCH (09:33)
[2018-04-17 15:00] VITALS: BP 158/76
[2018-04-17] MEDS ORDERED: LIDOCAINE-MPF 1%, 2ML ONE (15:32)
[2018-04-17] MEDS ORDERED: WARFARIN 5 MG TABLET PO-COUM SCH (18:00)
[2018-04-17 19:10] VITALS: BP 124/75
[2018-04-17] MEDS: MELATONIN 5 MG TABLET PO SCH (20:50)
[2018-04-17] MEDS: ATORVASTATIN 20 MG TABLET PO SCH (20:50)
[2018-04-18 00:38] VITALS: BP 119/70
[2018-04-18] MEDS: OXYcodone IR 5MG TABLET PO PRN ×7 (01:31→23:19)
[2018-04-18] MEDS: PIPERACILLIN/TAZO/PMX 3.375GM 50 ML IV SCH ×2 (04:45→11:27)
[2018-04-18 05:24] LABS: ANION GAP 8 mmol/L (5-15); CALCIUM 8.5 mg/dL (8.5-10.1); CHLORIDE 93 mmol/L (98-107); CREATININE 1.65 mg/dL (0.55-1.02)
[2018-04-18 05:29] LABS: INTERNATIONAL NORMALIZED RATIO 2.86 (0.93-1.1); PROTHROMBIN TIME 28.9 Seconds (9.6-11.5)
[2018-04-18] MEDS: ALBUTEROL SULFATE 2.5 MG/3 ML NPPB SCH ×4 (06:53→19:05)
[2018-04-18] MEDS: SODIUM CHLORIDE FLUSH 10ML SYR IVF SCH ×4 (07:40→22:14)
[2018-04-18] MEDS: INSULIN LISPRO 100 UNITS/ML, PEN SQ-INSULIN SCH ×4 (07:52→20:59)
[2018-04-18] MEDS: AMLODIPINE 5 MG TABLET PO SCH (07:53)
[2018-04-18] MEDS: DOCUSATE 100 MG CAPSULE PO SCH ×2 (07:53→20:54)
[2018-04-18] MEDS: TAMSULOSIN 0.4 MG CAP.ER.24H PO SCH ×2 (07:53→20:54)
[2018-04-18] MEDS: ASPIRIN 81 MG TABLET EC PO SCH (07:53)
[2018-04-18] MEDS: FINASTERIDE 5 MG TABLET PO SCH (07:53)
[2018-04-18] MEDS: GUAIFENESIN ER 600 MG TABLET PO SCH ×2 (07:53→20:55)
[2018-04-18] MEDS: GLIPizide ER 5 MG TABLET PO SCH (07:53)
[2018-04-18] MEDS: LORATADINE 10 MG TABLET PO SCH (07:53)
[2018-04-18] MEDS: FENOFIBRATE 145 MG TABLET PO SCH (07:54)
[2018-04-18] MEDS: WARFARIN BIOPROSTHETIC VALVE PROTOCOL 2-3 XX SCH (07:54)
[2018-04-18] MEDS: ENOXAPARIN 40 MG/0.4 ML SQ SCH (07:57)
[2018-04-18] MEDS ORDERED: FUROSEMIDE 40 MG/4 ML IV SCH (09:30)
[2018-04-18 09:52] VITALS: BP 141/80
[2018-04-18 09:54] LABS: MEAN CORPUSCULAR HEMOGLOBIN 29.5 pg (27.0-34.8); MEAN CORPUSCULAR HGB CONC 32.2 g/dL (32.4-35.8); MEAN CORPUSCULAR VOLUME 91.8 fL (80-100); MEAN PLATELET VOLUME 9.2 fL (7.4-10.4); PLATELET COUNT 392 x10^3/uL (130-400); RED BLOOD COUNT 3.17 x10^6/uL (3.82-5.3); RED CELL DISTRIBUTION WIDTH 15.2 % (9.6-15.2)
[2018-04-18 11:06] LABS: BASOPHILS # (AUTO) 0.07 x10^3/uL (0-0.1); BASOPHILS % (AUTO) 1 % (0-1); EOSINOPHILS # (AUTO) 0.13 x10^3/uL (0-0.4); EOSINOPHILS % (AUTO) 1 % (1-7); LYMPHOCYTES # (AUTO) 2.13 x10^3/uL (1-3.4); LYMPHOCYTES % (AUTO) 15 % (22-44); MD SCAN; MONOCYTES # (AUTO) 1.61 x10^3/uL (0.2-0.8); MONOCYTES % (AUTO) 11 % (2-9); NEUTROPHILS # (AUTO) 10.57 x10^3/uL (1.8-6.8); NEUTROPHILS % (AUTO) 73 % (42-75)
[2018-04-18] MEDS: FUROSEMIDE 40 MG/4 ML IV SCH (11:27)
[2018-04-18] MEDS: POTASSIUM CHLORIDE 20 MEQ TAB.ER.PRT PO SCH (11:27)
[2018-04-18 15:15] VITALS: BP 126/77
[2018-04-18 15:51] LABS: MICROSCOPIC AUTO
[2018-04-18 15:52] LABS: CULTURE INDICATED? NO
[2018-04-18] MEDS ORDERED: POTASSIUM CHLORIDE 20 MEQ TAB.ER.PRT PO SCH (17:00)
[2018-04-18] MEDS ORDERED: WARFARIN 5 MG TABLET PO-COUM SCH (18:00)
[2018-04-18] MEDS: PIPERACILLIN/TAZO/PMX 4.5GM 100 ML IV SCH ×2 (18:25→22:14)
[2018-04-18 20:31] VITALS: BP 132/79
[2018-04-18] MEDS: MELATONIN 5 MG TABLET PO SCH (20:55)
[2018-04-18] MEDS: ATORVASTATIN 20 MG TABLET PO SCH (20:55)
[2018-04-19 03:02] VITALS: BP 156/74
[2018-04-19] MEDS: OXYcodone IR 5MG TABLET PO PRN ×6 (04:16→20:47)
[2018-04-19] MEDS: PIPERACILLIN/TAZO/PMX 4.5GM 100 ML IV SCH ×4 (04:17→22:26)
[2018-04-19 05:29] LABS: MEAN CORPUSCULAR HEMOGLOBIN 30.3 pg (27.0-34.8); MEAN CORPUSCULAR HGB CONC 33.2 g/dL (32.4-35.8); MEAN CORPUSCULAR VOLUME 91.2 fL (80-100); MEAN PLATELET VOLUME 8.5 fL (7.4-10.4); PLATELET COUNT 435 x10^3/uL (130-400); RED BLOOD COUNT 3.19 x10^6/uL (3.82-5.3); RED CELL DISTRIBUTION WIDTH 15.5 % (9.6-15.2)
[2018-04-19 05:33] LABS: INTERNATIONAL NORMALIZED RATIO 3.39 (0.93-1.1); PROTHROMBIN TIME 34.1 Seconds (9.6-11.5)
[2018-04-19 05:41] LABS: CHLORIDE 92 mmol/L (98-107)
[2018-04-19 05:47] LABS: ANION GAP 12 mmol/L (5-15); CALCIUM 8.2 mg/dL (8.5-10.1); CREATININE 1.57 mg/dL (0.55-1.02)
[2018-04-19 05:57] LABS: BASOPHILS # (AUTO) 0.01 x10^3/uL (0-0.1); BASOPHILS % (AUTO) 0 % (0-1); EOSINOPHILS # (AUTO) 0.03 x10^3/uL (0-0.4); EOSINOPHILS % (AUTO) 0 % (1-7); LYMPHOCYTES # (AUTO) 1.38 x10^3/uL (1-3.4); LYMPHOCYTES % (AUTO) 9 % (22-44); MD SCAN; MONOCYTES # (AUTO) 1.54 x10^3/uL (0.2-0.8); MONOCYTES % (AUTO) 10 % (2-9); NEUTROPHILS # (AUTO) 12.21 x10^3/uL (1.8-6.8); NEUTROPHILS % (AUTO) 81 % (42-75)
[2018-04-19] MEDS ORDERED: [UNRECOGNIZED DRUG - REMARK] MC SCH (07:00)
[2018-04-19] MEDS: INSULIN LISPRO 100 UNITS/ML, PEN SQ-INSULIN SCH ×4 (07:00→20:55)
[2018-04-19 07:33] VITALS: BP 141/82
[2018-04-19] MEDS ORDERED: ACETAMINOPHEN 325 MG TABLET PO PRN (08:00)
[2018-04-19] MEDS: ALBUTEROL SULFATE 2.5 MG/3 ML NPPB SCH ×4 (08:20→19:18)
[2018-04-19] MEDS: WARFARIN BIOPROSTHETIC VALVE PROTOCOL 2-3 XX SCH (09:00)
[2018-04-19] MEDS: FUROSEMIDE 40 MG/4 ML IV SCH (09:09)
[2018-04-19] MEDS: FENOFIBRATE 145 MG TABLET PO SCH (09:10)
[2018-04-19] MEDS: LORATADINE 10 MG TABLET PO SCH (09:10)
[2018-04-19] MEDS: POTASSIUM CHLORIDE 20 MEQ TAB.ER.PRT PO SCH (09:10)
[2018-04-19] MEDS: GLIPizide ER 5 MG TABLET PO SCH (09:10)
[2018-04-19] MEDS: AMLODIPINE 5 MG TABLET PO SCH (09:10)
[2018-04-19] MEDS: ASPIRIN 81 MG TABLET EC PO SCH (09:10)
[2018-04-19] MEDS: GUAIFENESIN ER 600 MG TABLET PO SCH ×2 (09:10→20:49)
[2018-04-19] MEDS: FINASTERIDE 5 MG TABLET PO SCH (09:10)
[2018-04-19] MEDS: TAMSULOSIN 0.4 MG CAP.ER.24H PO SCH ×2 (09:10→20:49)
[2018-04-19] MEDS: SODIUM CHLORIDE FLUSH 10ML SYR IVF SCH ×2 (09:11→20:54)
[2018-04-19] MEDS: DOCUSATE 100 MG CAPSULE PO SCH ×2 (09:12→20:49)
[2018-04-19 11:41] VITALS: BP 108/70
[2018-04-19] MEDS: ENALAPRIL 10 MG TABLET PO SCH (11:48)
[2018-04-19] MEDS ORDERED: LISINOPRIL 5 MG TABLET PO SCH (12:00)
[2018-04-19 13:45] VITALS: BP 124/66
[2018-04-19] MEDS ORDERED: WARFARIN 2.5 MG TABLET PO-COUM SCH (18:00)
[2018-04-19] MEDS: MELATONIN 5 MG TABLET PO SCH (20:49)
[2018-04-19] MEDS: ATORVASTATIN 20 MG TABLET PO SCH (20:49)
[2018-04-19 21:44] VITALS: BP 100/59
[2018-04-20] MEDS: OXYcodone IR 5MG TABLET PO PRN ×3 (00:16→08:19)
[2018-04-20 01:17] VITALS: BP 76/50
[2018-04-20] MEDS ORDERED: AMIODARONE 450 MG in DEXTROSE 5% 241 ML IV PRN (01:30)
[2018-04-20] MEDS ORDERED: AMIODARONE 150 MG in DEXTROSE 5% 100 ML IV ONE (01:30)
[2018-04-20] MEDS ORDERED: FILTER 0.22 MICRON IV PRN (02:00)
[2018-04-20 02:40] VITALS: BP_SYST 67; BP_SYST 90; BP_DIAS 38; BP_DIAS 56
[2018-04-20] MEDS ORDERED: SODIUM CHLORIDE 0.9%, 500ML IVBOLUS STA ×2 (03:00→04:19)
[2018-04-20 03:48] VITALS: BP 82/52
[2018-04-20] MEDS: PIPERACILLIN/TAZO/PMX 4.5GM 100 ML IV SCH ×4 (03:49→22:28)
[2018-04-20 05:05] LABS: INTERNATIONAL NORMALIZED RATIO 3.46 (0.93-1.1); PROTHROMBIN TIME 34.8 Seconds (9.6-11.5)
[2018-04-20 05:08] LABS: MEAN CORPUSCULAR HEMOGLOBIN 29.4 pg (27.0-34.8); MEAN CORPUSCULAR HGB CONC 32.4 g/dL (32.4-35.8); MEAN CORPUSCULAR VOLUME 90.7 fL (80-100); MEAN PLATELET VOLUME 8.5 fL (7.4-10.4); PLATELET COUNT 445 x10^3/uL (130-400); RED BLOOD COUNT 2.92 x10^6/uL (3.82-5.3); RED CELL DISTRIBUTION WIDTH 15.7 % (9.6-15.2)
[2018-04-20 05:12] LABS: ANION GAP 9 mmol/L (5-15); CALCIUM 7.5 mg/dL (8.5-10.1); CHLORIDE 95 mmol/L (98-107)
[2018-04-20 05:35] VITALS: BP 78/46
[2018-04-20 06:10] LABS: BASOPHILS # (AUTO) 0.08 x10^3/uL (0-0.1); BASOPHILS % (AUTO) 1 % (0-1); EOSINOPHILS # (AUTO) 0.07 x10^3/uL (0-0.4); EOSINOPHILS % (AUTO) 0 % (1-7); LYMPHOCYTES # (AUTO) 1.97 x10^3/uL (1-3.4); LYMPHOCYTES % (AUTO) 13 % (22-44); MD SCAN; MONOCYTES # (AUTO) 1.58 x10^3/uL (0.2-0.8); MONOCYTES % (AUTO) 10 % (2-9); NEUTROPHILS # (AUTO) 11.47 x10^3/uL (1.8-6.8); NEUTROPHILS % (AUTO) 76 % (42-75)
[2018-04-20] MEDS: PHENYLEPHRINE 10 MG in SODIUM CHLORIDE 0.9% 249 ML IV PRN ×4 (06:24→16:38)
[2018-04-20] MEDS: ALBUTEROL SULFATE 2.5 MG/3 ML NPPB SCH (07:00)
[2018-04-20] MEDS: INSULIN LISPRO 100 UNITS/ML, PEN SQ-INSULIN SCH ×4 (07:00→21:00)
[2018-04-20] MEDS ORDERED: POTASSIUM CHLORIDE 20 MEQ TAB.ER.PRT PO ONE (07:30)
[2018-04-20] MEDS: AMLODIPINE 5 MG TABLET PO SCH (07:51)
[2018-04-20] MEDS: ENALAPRIL 10 MG TABLET PO SCH (07:58)
[2018-04-20] MEDS: LORATADINE 10 MG TABLET PO SCH (08:19)
[2018-04-20] MEDS: GUAIFENESIN ER 600 MG TABLET PO SCH ×2 (08:19→21:05)
[2018-04-20] MEDS: DOCUSATE 100 MG CAPSULE PO SCH (08:19)
[2018-04-20] MEDS: ASPIRIN 81 MG TABLET EC PO SCH (08:20)
[2018-04-20] MEDS: FENOFIBRATE 145 MG TABLET PO SCH (08:20)
[2018-04-20] MEDS: GLIPizide ER 5 MG TABLET PO SCH (08:20)
[2018-04-20] MEDS: FINASTERIDE 5 MG TABLET PO SCH (08:20)
[2018-04-20] MEDS: SODIUM CHLORIDE FLUSH 10ML SYR IVF SCH ×2 (08:22→22:29)
[2018-04-20] MEDS: TAMSULOSIN 0.4 MG CAP.ER.24H PO SCH ×2 (08:22→21:05)
[2018-04-20] MEDS: WARFARIN BIOPROSTHETIC VALVE PROTOCOL 2-3 XX SCH (09:00)
[2018-04-20] MEDS ORDERED: LIDOCAINE-MPF 1%, 2ML ONE (09:48)
[2018-04-20] MEDS ORDERED: ALBUMIN HUMAN 5% 500 ML IV ONE (13:30)
[2018-04-20] MEDS ORDERED: CALCIUM CHLORIDE 13.6 MEQ in SODIUM CHLORIDE 0.9% 100 ML IV ONE (14:00)
[2018-04-20] MEDS ORDERED: WARFARIN 1 MG TABLET PO-COUM SCH (18:00)
[2018-04-20] MEDS: AMIODARONE 200 MG TABLET PO SCH (21:04)
[2018-04-20] MEDS: MELATONIN 5 MG TABLET PO SCH (21:04)
[2018-04-20] MEDS: ATORVASTATIN 20 MG TABLET PO SCH (21:05)
[2018-04-21] MEDS: ALBUTEROL SULFATE 2.5 MG/3 ML NPPB PRN ×3 (02:31→18:39)
[2018-04-21] MEDS: OXYcodone IR 5MG TABLET PO PRN ×4 (02:39→23:07)
[2018-04-21] MEDS: PIPERACILLIN/TAZO/PMX 4.5GM 100 ML IV SCH ×4 (05:08→21:06)
[2018-04-21 05:36] LABS: INTERNATIONAL NORMALIZED RATIO 2.24 (0.93-1.1); PROTHROMBIN TIME 22.7 Seconds (9.6-11.5)
[2018-04-21 05:43] LABS: ANION GAP 7 mmol/L (5-15); CALCIUM 8.4 mg/dL (8.5-10.1); CHLORIDE 99 mmol/L (98-107)
[2018-04-21 05:45] LABS: CREATININE 2.05 mg/dL (0.55-1.02)
[2018-04-21] MEDS: INSULIN LISPRO 100 UNITS/ML, PEN SQ-INSULIN SCH ×4 (07:00→21:08)
[2018-04-21] MEDS: ASPIRIN 81 MG TABLET EC PO SCH (07:41)
[2018-04-21] MEDS: WARFARIN BIOPROSTHETIC VALVE PROTOCOL 2-3 XX SCH (07:41)
[2018-04-21 08:18] LABS: BASOPHILS # (AUTO) 0.04 x10^3/uL (0-0.1); BASOPHILS % (AUTO) 0 % (0-1); EOSINOPHILS # (AUTO) 0.01 x10^3/uL (0-0.4); EOSINOPHILS % (AUTO) 0 % (1-7); LYMPHOCYTES # (AUTO) 1.12 x10^3/uL (1-3.4); LYMPHOCYTES % (AUTO) 8 % (22-44); MD NO; MEAN CORPUSCULAR HEMOGLOBIN 29.7 pg (27.0-34.8); MEAN CORPUSCULAR HGB CONC 32.6 g/dL (32.4-35.8); MEAN PLATELET VOLUME 8.6 fL (7.4-10.4); MONOCYTES # (AUTO) 1.12 x10^3/uL (0.2-0.8); MONOCYTES % (AUTO) 8 % (2-9); NEUTROPHILS # (AUTO) 12.18 x10^3/uL (1.8-6.8); NEUTROPHILS % (AUTO) 84 % (42-75); PLATELET COUNT 487 x10^3/uL (130-400); RED BLOOD COUNT 2.81 x10^6/uL (3.82-5.3); RED CELL DISTRIBUTION WIDTH 16.1 % (9.6-15.2)
[2018-04-21] MEDS: TAMSULOSIN 0.4 MG CAP.ER.24H PO SCH ×2 (10:23→21:04)
[2018-04-21] MEDS: GUAIFENESIN ER 600 MG TABLET PO SCH ×2 (10:23→21:04)
[2018-04-21] MEDS: DOCUSATE 100 MG CAPSULE PO SCH (10:24)
[2018-04-21] MEDS: FENOFIBRATE 145 MG TABLET PO SCH (10:24)
[2018-04-21] MEDS: AMIODARONE 200 MG TABLET PO SCH ×2 (10:24→21:06)
[2018-04-21] MEDS: FINASTERIDE 5 MG TABLET PO SCH (10:25)
[2018-04-21] MEDS: LORATADINE 10 MG TABLET PO SCH (10:25)
[2018-04-21] MEDS: SODIUM CHLORIDE FLUSH 10ML SYR IVF SCH ×2 (10:26→21:09)
[2018-04-21] MEDS: GLIPizide ER 5 MG TABLET PO SCH (11:10)
[2018-04-21] MEDS: SODIUM CHLORIDE 0.9% 1,000 ML IV SCH ×2 (13:19→22:57)
[2018-04-21] MEDS ORDERED: SODIUM CHLORIDE 0.9%, 250ML IVBOLUS ONE ×2 (13:30→23:00)
[2018-04-21] MEDS ORDERED: WARFARIN 3 MG TABLET PO-COUM ONE (18:00)
[2018-04-21] MEDS: HYDROcodone/APAP 5/325 TABLET PO PRN (21:03)
[2018-04-21] MEDS: MELATONIN 5 MG TABLET PO SCH (21:04)
[2018-04-21] MEDS: ATORVASTATIN 20 MG TABLET PO SCH (21:05)
[2018-04-21] MEDS: PHENYLEPHRINE 10 MG in SODIUM CHLORIDE 0.9% 249 ML IV PRN (22:58)
[2018-04-22] MEDS: HYDROcodone/APAP 5/325 TABLET PO PRN ×2 (01:30→08:40)
[2018-04-22] MEDS ORDERED: PHENYLEPHRINE 20 MG in SODIUM CHLORIDE 0.9% 248 ML IV PRN (01:38)
[2018-04-22 03:12] LABS: MEAN CORPUSCULAR HEMOGLOBIN 29.5 pg (27.0-34.8); MEAN CORPUSCULAR HGB CONC 32.3 g/dL (32.4-35.8); MEAN CORPUSCULAR VOLUME 91.3 fL (80-100); MEAN PLATELET VOLUME 8.3 fL (7.4-10.4); PLATELET COUNT 565 x10^3/uL (130-400); RED BLOOD COUNT 2.82 x10^6/uL (3.82-5.3); RED CELL DISTRIBUTION WIDTH 16.6 % (9.6-15.2)
[2018-04-22 03:20] LABS: INTERNATIONAL NORMALIZED RATIO 2.24 (0.93-1.1); PROTHROMBIN TIME 22.7 Seconds (9.6-11.5)
[2018-04-22 03:24] LABS: ANION GAP 8 mmol/L (5-15); CALCIUM 7.9 mg/dL (8.5-10.1); CHLORIDE 99 mmol/L (98-107); CREATININE 2.25 mg/dL (0.55-1.02)
[2018-04-22 03:37] LABS: BASOPHILS # (AUTO) 0.05 x10^3/uL (0-0.1); BASOPHILS % (AUTO) 0 % (0-1); EOSINOPHILS % (AUTO) 0 % (1-7); LYMPHOCYTES # (AUTO) 1.96 x10^3/uL (1-3.4); LYMPHOCYTES % (AUTO) 12 % (22-44); MD SCAN; MONOCYTES # (AUTO) 1.61 x10^3/uL (0.2-0.8); MONOCYTES % (AUTO) 10 % (2-9); NEUTROPHILS # (AUTO) 12.15 x10^3/uL (1.8-6.8); NEUTROPHILS % (AUTO) 77 % (42-75)
[2018-04-22] MEDS: PIPERACILLIN/TAZO/PMX 4.5GM 100 ML IV SCH ×2 (04:37→10:23)
[2018-04-22] MEDS: INSULIN LISPRO 100 UNITS/ML, PEN SQ-INSULIN SCH ×4 (07:00→20:33)
[2018-04-22] MEDS: SODIUM CHLORIDE FLUSH 10ML SYR IVF SCH ×2 (08:39→20:29)
[2018-04-22] MEDS: LORATADINE 10 MG TABLET PO SCH (08:39)
[2018-04-22] MEDS: GUAIFENESIN ER 600 MG TABLET PO SCH ×2 (08:40→20:30)
[2018-04-22] MEDS: TAMSULOSIN 0.4 MG CAP.ER.24H PO SCH ×2 (08:40→20:29)
[2018-04-22] MEDS: FENOFIBRATE 145 MG TABLET PO SCH (08:40)
[2018-04-22] MEDS: FINASTERIDE 5 MG TABLET PO SCH (08:40)
[2018-04-22] MEDS: ASPIRIN 81 MG TABLET EC PO SCH (08:40)
[2018-04-22] MEDS: AMIODARONE 200 MG TABLET PO SCH (08:40)
[2018-04-22] MEDS: GLIPizide ER 5 MG TABLET PO SCH (08:40)
[2018-04-22] MEDS: DOCUSATE 100 MG CAPSULE PO SCH (08:44)
[2018-04-22] MEDS: WARFARIN BIOPROSTHETIC VALVE PROTOCOL 2-3 XX SCH (08:45)
[2018-04-22] MEDS: ALBUMIN HUMAN 25% 50 ML IV SCH ×2 (13:00→20:29)
[2018-04-22 15:17] VITALS: BP 132/61
[2018-04-22 16:45] VITALS: BP 119/59
[2018-04-22] MEDS: PIPERACILLIN/TAZO/PMX 3.375GM 50 ML IV SCH ×2 (16:45→22:14)
[2018-04-22 17:21] VITALS: BP 104/55
[2018-04-22 17:42] VITALS: BP 102/59
[2018-04-22] MEDS ORDERED: WARFARIN 3 MG TABLET PO-COUM ONE (18:00)
[2018-04-22] MEDS: MELATONIN 5 MG TABLET PO SCH (20:29)
[2018-04-22] MEDS: OXYcodone IR 5MG TABLET PO PRN (20:30)
[2018-04-22] MEDS: ATORVASTATIN 20 MG TABLET PO SCH (20:30)
[2018-04-23] MEDS: ALBUMIN HUMAN 25% 50 ML IV SCH ×4 (00:22→21:18)
[2018-04-23] MEDS: PIPERACILLIN/TAZO/PMX 3.375GM 50 ML IV SCH ×4 (04:17→22:10)
[2018-04-23 04:45] LABS: MEAN CORPUSCULAR HEMOGLOBIN 30.1 pg (27.0-34.8); MEAN CORPUSCULAR HGB CONC 32.8 g/dL (32.4-35.8); MEAN CORPUSCULAR VOLUME 91.7 fL (80-100); MEAN PLATELET VOLUME 8.2 fL (7.4-10.4); PLATELET COUNT 523 x10^3/uL (130-400); RED BLOOD COUNT 2.74 x10^6/uL (3.82-5.3); RED CELL DISTRIBUTION WIDTH 16.2 % (9.6-15.2)
[2018-04-23 04:47] LABS: INTERNATIONAL NORMALIZED RATIO 1.8 (0.93-1.1); PROTHROMBIN TIME 18.3 Seconds (9.6-11.5)
[2018-04-23 04:54] LABS: CHLORIDE 99 mmol/L (98-107)
[2018-04-23 05:02] LABS: ALANINE AMINOTRANSFERASE 50 U/L (12-78); ALBUMIN 2.9 g/dL (3.4-5.0); ALKALINE PHOSPHATASE 55 U/L (45-117); ANION GAP 9 mmol/L (5-15); BILIRUBIN,TOTAL 1.5 mg/dL (0.2-1.0); CALCIUM 8.5 mg/dL (8.5-10.1); CREATININE 1.96 mg/dL (0.55-1.02); TOTAL PROTEIN 6.5 g/dL (6.4-8.2)
[2018-04-23 05:44] LABS: BASOPHILS % (AUTO) 1 % (0-1); EOSINOPHILS # (AUTO) 0.03 x10^3/uL (0-0.4); EOSINOPHILS % (AUTO) 0 % (1-7); LYMPHOCYTES # (AUTO) 1.86 x10^3/uL (1-3.4); LYMPHOCYTES % (AUTO) 12 % (22-44); MD SCAN; MONOCYTES # (AUTO) 1.23 x10^3/uL (0.2-0.8); MONOCYTES % (AUTO) 8 % (2-9); NEUTROPHILS # (AUTO) 11.81 x10^3/uL (1.8-6.8); NEUTROPHILS % (AUTO) 79 % (42-75)
[2018-04-23] MEDS ORDERED: AMIODARONE 900 MG in DEXTROSE 5% 482 ML IV PRN (07:00)
[2018-04-23] MEDS ORDERED: FILTER 0.22 MICRON IV PRN (07:00)
[2018-04-23] MEDS: INSULIN LISPRO 100 UNITS/ML, PEN SQ-INSULIN SCH ×4 (07:00→21:00)
[2018-04-23] MEDS ORDERED: AMIODARONE 150 MG in DEXTROSE 5% 100 ML IV ONE (07:00)
[2018-04-23 07:43] VITALS: BP 128/76
[2018-04-23] MEDS: DOCUSATE 100 MG CAPSULE PO SCH (07:51)
[2018-04-23] MEDS: AMIODARONE 200 MG TABLET PO SCH (07:55)
[2018-04-23 08:01] VITALS: BP 125/59
[2018-04-23 08:15] VITALS: BP 120/61
[2018-04-23 08:58] VITALS: BP 119/60
[2018-04-23] MEDS: GUAIFENESIN ER 600 MG TABLET PO SCH ×2 (09:00→21:00)
[2018-04-23] MEDS: GLIPizide ER 5 MG TABLET PO SCH (09:00)
[2018-04-23] MEDS: ASPIRIN 81 MG TABLET EC PO SCH (09:00)
[2018-04-23] MEDS: LORATADINE 10 MG TABLET PO SCH (09:00)
[2018-04-23] MEDS: FINASTERIDE 5 MG TABLET PO SCH (09:00)
[2018-04-23] MEDS: FENOFIBRATE 145 MG TABLET PO SCH (09:00)
[2018-04-23] MEDS: WARFARIN BIOPROSTHETIC VALVE PROTOCOL 2-3 XX SCH (09:00)
[2018-04-23] MEDS: SODIUM CHLORIDE FLUSH 10ML SYR IVF SCH ×2 (09:00→21:17)
[2018-04-23] MEDS: TAMSULOSIN 0.4 MG CAP.ER.24H PO SCH ×2 (09:00→21:17)
[2018-04-23] MEDS: ALBUTEROL SULFATE 2.5 MG/3 ML NPPB PRN (09:37)
[2018-04-23] MEDS: LACTOBACILLUS CHEW TABLET PO SCH ×3 (09:50→21:17)
[2018-04-23 09:55] LABS: INTERNATIONAL NORMALIZED RATIO 1.68 (0.93-1.1); PROTHROMBIN TIME 17.1 Seconds (9.6-11.5)
[2018-04-23] MEDS ORDERED: ALBUTEROL/IPRATROPIUM 2.5MG/0.5MG, 3 ML NPPB SCH (11:00)
[2018-04-23] MEDS ORDERED: FENTANYL PF 250 MCG/5ML ONE (12:04)
[2018-04-23] MEDS ORDERED: MIDAZOLAM 10MG/2 ML ONE (12:14)
[2018-04-23] MEDS ORDERED: BACITRACIN 50,000 UNIT IRRIG ONE ×2 (12:30→13:14)
[2018-04-23] MEDS ORDERED: ROCURONIUM 10MG/ML,5ML ONE ×2 (12:46)
[2018-04-23] MEDS ORDERED: VASOPRESSIN 20 UNIT/ML, 1ML ONE (12:46)
[2018-04-23] MEDS ORDERED: PROPOFOL 10 MG/ML, 20ML ONE (12:46)
[2018-04-23] MEDS ORDERED: ALBUTEROL SULFATE 2.5 MG/3 ML ONE (15:27)
[2018-04-23] MEDS: ALBUTEROL/IPRATROPIUM 2.5MG/0.5MG, 3 ML INLINE SCH ×2 (15:28→18:39)
[2018-04-23] MEDS: MORPHINE SULFATE 4 MG/ML, 1ML IVPush PRN ×2 (17:32→22:38)
[2018-04-23] MEDS: PROPOFOL 100 ML IV PRN ×2 (17:57→22:29)
[2018-04-23] MEDS: MELATONIN 5 MG TABLET PO SCH (21:00)
[2018-04-23] MEDS: ATORVASTATIN 20 MG TABLET PO SCH (21:17)
[2018-04-24] MEDS: ALBUMIN HUMAN 25% 50 ML IV SCH ×4 (03:15→21:25)
[2018-04-24] MEDS: PROPOFOL 100 ML IV PRN (03:19)
[2018-04-24] MEDS: PIPERACILLIN/TAZO/PMX 3.375GM 50 ML IV SCH ×4 (04:43→22:36)
[2018-04-24 05:23] LABS: ANION GAP 10 mmol/L (5-15); CHLORIDE 103 mmol/L (98-107); CREATININE 1.62 mg/dL (0.55-1.02)
[2018-04-24 05:25] LABS: BASOPHILS # (AUTO) 0.04 x10^3/uL (0-0.1); BASOPHILS % (AUTO) 0 % (0-1); EOSINOPHILS # (AUTO) 0.08 x10^3/uL (0-0.4); EOSINOPHILS % (AUTO) 0 % (1-7); LYMPHOCYTES # (AUTO) 1.26 x10^3/uL (1-3.4); LYMPHOCYTES % (AUTO) 7 % (22-44); MD NO; MEAN CORPUSCULAR HEMOGLOBIN 29.7 pg (27.0-34.8); MEAN CORPUSCULAR HGB CONC 32.8 g/dL (32.4-35.8); MEAN CORPUSCULAR VOLUME 90.7 fL (80-100); MEAN PLATELET VOLUME 8.1 fL (7.4-10.4); MONOCYTES # (AUTO) 0.91 x10^3/uL (0.2-0.8); MONOCYTES % (AUTO) 5 % (2-9); NEUTROPHILS # (AUTO) 15.49 x10^3/uL (1.8-6.8); NEUTROPHILS % (AUTO) 87 % (42-75); PLATELET COUNT 497 x10^3/uL (130-400); RED BLOOD COUNT 2.45 x10^6/uL (3.82-5.3); RED CELL DISTRIBUTION WIDTH 16.6 % (9.6-15.2)
[2018-04-24] MEDS: OXYcodone IR 5MG TABLET PO PRN ×2 (06:21→18:40)
[2018-04-24 06:31] LABS: INTERNATIONAL NORMALIZED RATIO 1.37 (0.93-1.1)
[2018-04-24] MEDS: INSULIN LISPRO 100 UNITS/ML, PEN SQ-INSULIN SCH ×4 (07:00→21:00)
[2018-04-24] MEDS ORDERED: AMIODARONE 150 MG in DEXTROSE 5% 100 ML IV ONE (07:30)
[2018-04-24] MEDS ORDERED: FILTER 0.22 MICRON IV ONE (07:30)
[2018-04-24] MEDS ORDERED: SODIUM CHLORIDE 0.9% 1,000 ML IV SCH (07:30)
[2018-04-24] MEDS ORDERED: FENTANYL 50 MCG PATCH TD SCH (08:00)
[2018-04-24] MEDS: LORATADINE 10 MG TABLET PO SCH (08:54)
[2018-04-24] MEDS: DOCUSATE 100 MG CAPSULE PO SCH (08:54)
[2018-04-24] MEDS: GUAIFENESIN ER 600 MG TABLET PO SCH ×2 (08:54→21:22)
[2018-04-24] MEDS: AMIODARONE 200 MG TABLET PO SCH (08:54)
[2018-04-24] MEDS: TAMSULOSIN 0.4 MG CAP.ER.24H PO SCH ×2 (08:54→21:22)
[2018-04-24] MEDS: LACTOBACILLUS CHEW TABLET PO SCH ×3 (08:54→21:22)
[2018-04-24] MEDS: FINASTERIDE 5 MG TABLET PO SCH (08:54)
[2018-04-24] MEDS: FENOFIBRATE 145 MG TABLET PO SCH (08:54)
[2018-04-24] MEDS: GLIPizide ER 5 MG TABLET PO SCH (08:54)
[2018-04-24] MEDS: SODIUM CHLORIDE FLUSH 10ML SYR IVF SCH ×2 (08:55→21:33)
[2018-04-24] MEDS: ASPIRIN 81 MG TABLET EC PO SCH (08:55)
[2018-04-24] MEDS: WARFARIN BIOPROSTHETIC VALVE PROTOCOL 2-3 XX SCH (09:00)
[2018-04-24] MEDS: HYDROcodone/APAP 5/325 TABLET PO PRN ×3 (09:35→19:42)
[2018-04-24] MEDS: ALBUTEROL/IPRATROPIUM 2.5MG/0.5MG, 3 ML INLINE SCH (11:00)
[2018-04-24 13:44] VITALS: BP 141/75
[2018-04-24 13:47] VITALS: BP 141/75
[2018-04-24] MEDS: ALBUTEROL/IPRATROPIUM 2.5MG/0.5MG, 3 ML NPPB SCH ×2 (14:52→18:39)
[2018-04-24] MEDS: ATORVASTATIN 20 MG TABLET PO SCH (21:22)
[2018-04-24] MEDS: MELATONIN 5 MG TABLET PO SCH (21:22)
[2018-04-25] MEDS: OXYcodone IR 5MG TABLET PO PRN ×3 (00:33→16:56)
[2018-04-25] MEDS: HYDROcodone/APAP 5/325 TABLET PO PRN (02:02)
[2018-04-25] MEDS: ALBUMIN HUMAN 25% 50 ML IV SCH (03:54)
[2018-04-25 04:26] LABS: MEAN CORPUSCULAR HEMOGLOBIN 29.6 pg (27.0-34.8); MEAN CORPUSCULAR HGB CONC 32.6 g/dL (32.4-35.8); MEAN CORPUSCULAR VOLUME 90.7 fL (80-100); MEAN PLATELET VOLUME 7.8 fL (7.4-10.4); PLATELET COUNT 508 x10^3/uL (130-400); RED BLOOD COUNT 3.34 x10^6/uL (3.82-5.3); RED CELL DISTRIBUTION WIDTH 16.7 % (9.6-15.2)
[2018-04-25] MEDS: PIPERACILLIN/TAZO/PMX 3.375GM 50 ML IV SCH (04:36)
[2018-04-25 04:37] LABS: ANION GAP 7 mmol/L (5-15); CALCIUM 8.1 mg/dL (8.5-10.1); CHLORIDE 102 mmol/L (98-107)
[2018-04-25 04:38] LABS: CREATININE 1.46 mg/dL (0.55-1.02)
[2018-04-25 04:41] LABS: MD YES
[2018-04-25 04:44] LABS: ANISOCYTOSIS 1+; EOS#(MANUAL) 0.18 x10^3/uL (0.0-0.4); EOS% (MANUAL) 1 % (1-7); LYMPHS% (MANUAL) 10 % (22-44); MONOS#(MANUAL) 1.26 x10^3/uL (0.3-2.7); MONOS% (MANUAL) 7 % (2-9); POLYCHROMASIA 2+; SEG#(MANUAL) 14.76 x10^3/uL (1.8-6.8); SEGS% (MANUAL) 82 % (42-75)
[2018-04-25 04:45] LABS: <PLATELET ESTIMATE> INCREASED; <PLT MORPHOLOGY> NORMAL PLT MORPH; INTERNATIONAL NORMALIZED RATIO 1.22 (0.93-1.1); PROTHROMBIN TIME 12.5 Seconds (9.6-11.5)
[2018-04-25] MEDS: ALBUTEROL/IPRATROPIUM 2.5MG/0.5MG, 3 ML NPPB SCH ×4 (06:28→18:39)
[2018-04-25] MEDS: INSULIN LISPRO 100 UNITS/ML, PEN SQ-INSULIN SCH ×4 (07:00→21:00)
[2018-04-25] MEDS ORDERED: POTASSIUM CHLORIDE 20 MEQ TAB.ER.PRT PO ONE (07:00)
[2018-04-25] MEDS: POTASSIUM CHLORIDE 10 MEQ TABLET.ER PO SCH ×2 (08:00→18:23)
[2018-04-25] MEDS: FINASTERIDE 5 MG TABLET PO SCH (08:06)
[2018-04-25] MEDS: TAMSULOSIN 0.4 MG CAP.ER.24H PO SCH ×2 (08:07→21:16)
[2018-04-25] MEDS: DOCUSATE 100 MG CAPSULE PO SCH (08:07)
[2018-04-25] MEDS: ASPIRIN 81 MG TABLET EC PO SCH (08:07)
[2018-04-25] MEDS: AMIODARONE 200 MG TABLET PO SCH (08:07)
[2018-04-25] MEDS: GUAIFENESIN ER 600 MG TABLET PO SCH ×2 (08:08→21:16)
[2018-04-25] MEDS: GLIPizide ER 5 MG TABLET PO SCH (08:08)
[2018-04-25] MEDS: LACTOBACILLUS CHEW TABLET PO SCH ×3 (08:08→21:16)
[2018-04-25] MEDS: LORATADINE 10 MG TABLET PO SCH (08:08)
[2018-04-25] MEDS: FENOFIBRATE 145 MG TABLET PO SCH (08:08)
[2018-04-25] MEDS: FUROSEMIDE 20 MG/2 ML IV SCH ×2 (08:09→18:22)
[2018-04-25] MEDS: SODIUM CHLORIDE FLUSH 10ML SYR IVF SCH ×2 (08:10→21:16)
[2018-04-25] MEDS: METOPROLOL TARTRATE 25 MG TABLET PO SCH ×2 (08:13→18:22)
[2018-04-25] MEDS ORDERED: OXYcodone IR 5MG TABLET PO PRN (08:30)
[2018-04-25] MEDS: WARFARIN BIOPROSTHETIC VALVE PROTOCOL 2-3 XX SCH (09:00)
[2018-04-25 09:30] LABS: CULTURE INDICATED? YES; MICROSCOPIC INDICATED
[2018-04-25] MEDS ORDERED: POTASSIUM CHLORIDE 20 MEQ TAB.ER.PRT PO SCH (10:00)
[2018-04-25] MEDS ORDERED: MAGNESIUM SULFATE PMX 2GM/50ML 50 ML IV ONE (10:00)
[2018-04-25 10:05] LABS: FIO2 80 %
[2018-04-25] MEDS: PIPERACILLIN/TAZO/PMX 4.5GM 100 ML IV SCH ×2 (12:44→18:22)
[2018-04-25] MEDS ORDERED: WARFARIN 5 MG TABLET PO-COUM ONE (18:00)
[2018-04-25] MEDS: MELATONIN 5 MG TABLET PO SCH (21:15)
[2018-04-25] MEDS: ATORVASTATIN 20 MG TABLET PO SCH (21:15)
[2018-04-26] MEDS: PIPERACILLIN/TAZO/PMX 4.5GM 100 ML IV SCH ×4 (00:37→18:16)
[2018-04-26] MEDS: OXYcodone IR 5MG TABLET PO PRN ×2 (02:01→20:27)
[2018-04-26 05:31] LABS: ANION GAP 6 mmol/L (5-15); CALCIUM 7.4 mg/dL (8.5-10.1); CHLORIDE 106 mmol/L (98-107); CREATININE 1.36 mg/dL (0.55-1.02)
[2018-04-26] MEDS: METOPROLOL TARTRATE 25 MG TABLET PO SCH ×2 (06:23→18:13)
[2018-04-26 06:25] LABS: INTERNATIONAL NORMALIZED RATIO 1.49 (0.93-1.1); PROTHROMBIN TIME 15.2 Seconds (9.6-11.5)
[2018-04-26] MEDS: ALBUTEROL/IPRATROPIUM 2.5MG/0.5MG, 3 ML NPPB SCH (07:05)
[2018-04-26] MEDS: INSULIN LISPRO 100 UNITS/ML, PEN SQ-INSULIN SCH ×4 (08:06→20:36)
[2018-04-26] MEDS: FUROSEMIDE 40 MG/4 ML IV SCH ×2 (09:00→16:32)
[2018-04-26] MEDS: SODIUM CHLORIDE FLUSH 10ML SYR IVF SCH ×2 (09:00→20:28)
[2018-04-26] MEDS: WARFARIN BIOPROSTHETIC VALVE PROTOCOL 2-3 XX SCH (09:00)
[2018-04-26] MEDS: POTASSIUM CHLORIDE 20 MEQ TAB.ER.PRT PO SCH ×2 (09:00→16:31)
[2018-04-26 09:01] LABS: MEAN CORPUSCULAR HEMOGLOBIN 29.6 pg (27.0-34.8); MEAN CORPUSCULAR HGB CONC 32.7 g/dL (32.4-35.8); MEAN CORPUSCULAR VOLUME 90.5 fL (80-100); MEAN PLATELET VOLUME 8.1 fL (7.4-10.4); PLATELET COUNT 472 x10^3/uL (130-400); RED BLOOD COUNT 3.34 x10^6/uL (3.82-5.3); RED CELL DISTRIBUTION WIDTH 16.7 % (9.6-15.2)
[2018-04-26 09:09] LABS: MD YES
[2018-04-26 09:14] LABS: ANISOCYTOSIS 1+; BANDS%(MANUAL) 6 % (0-7); EOS#(MANUAL) 0.33 x10^3/uL (0.0-0.4); EOS% (MANUAL) 2 % (1-7); LYMPH#(MANUAL) 1.34 x10^3/uL (1-3.4); LYMPHS% (MANUAL) 8 % (22-44); POLYCHROMASIA 1+; SEG#(MANUAL) 14.03 x10^3/uL (1.8-6.8); SEGS% (MANUAL) 84 % (42-75)
[2018-04-26 09:15] LABS: <PLATELET ESTIMATE> INCREASED; <PLT MORPHOLOGY> NORMAL PLT MORPH
[2018-04-26] MEDS: LINEZOLID PMX 600MG/300ML 300 ML IVPB SCH ×2 (10:32→20:28)
[2018-04-26] MEDS: AMIODARONE 200 MG TABLET PO SCH (10:33)
[2018-04-26] MEDS: LORATADINE 10 MG TABLET PO SCH (10:33)
[2018-04-26] MEDS: LACTOBACILLUS CHEW TABLET PO SCH ×3 (10:34→20:27)
[2018-04-26] MEDS: GLIPizide ER 5 MG TABLET PO SCH (10:34)
[2018-04-26] MEDS: GUAIFENESIN ER 600 MG TABLET PO SCH ×2 (10:34→20:27)
[2018-04-26] MEDS: ASPIRIN 81 MG TABLET EC PO SCH (10:34)
[2018-04-26] MEDS: FINASTERIDE 5 MG TABLET PO SCH (10:35)
[2018-04-26] MEDS: FENOFIBRATE 145 MG TABLET PO SCH (10:35)
[2018-04-26] MEDS: DOCUSATE 100 MG CAPSULE PO SCH (10:43)
[2018-04-26] MEDS: TAMSULOSIN 0.4 MG CAP.ER.24H PO SCH ×2 (11:17→20:27)
[2018-04-26] MEDS: FLUCONAZOLE 200 MG/100 ML 100 ML IV SCH (12:45)
[2018-04-26] MEDS ORDERED: WARFARIN 5 MG TABLET PO-COUM SCH (18:00)
[2018-04-26] MEDS: MELATONIN 5 MG TABLET PO SCH (20:27)
[2018-04-26] MEDS: ATORVASTATIN 20 MG TABLET PO SCH (20:28)
[2018-04-27] MEDS: PIPERACILLIN/TAZO/PMX 4.5GM 100 ML IV SCH ×4 (00:13→17:35)
[2018-04-27 05:09] LABS: INTERNATIONAL NORMALIZED RATIO 1.67 (0.93-1.1)
[2018-04-27 05:15] LABS: ANION GAP 7 mmol/L (5-15); CALCIUM 8.3 mg/dL (8.5-10.1); CHLORIDE 102 mmol/L (98-107)
[2018-04-27 05:17] LABS: CREATININE 1.46 mg/dL (0.55-1.02)
[2018-04-27 05:28] LABS: BASOPHILS # (AUTO) 0.07 x10^3/uL (0-0.1); BASOPHILS % (AUTO) 1 % (0-1); EOSINOPHILS # (AUTO) 0.19 x10^3/uL (0-0.4); EOSINOPHILS % (AUTO) 1 % (1-7); LYMPHOCYTES # (AUTO) 1.24 x10^3/uL (1-3.4); LYMPHOCYTES % (AUTO) 8 % (22-44); MD NO; MEAN CORPUSCULAR HEMOGLOBIN 30.3 pg (27.0-34.8); MEAN CORPUSCULAR HGB CONC 33.3 g/dL (32.4-35.8); MEAN CORPUSCULAR VOLUME 91.1 fL (80-100); MEAN PLATELET VOLUME 8.1 fL (7.4-10.4); MONOCYTES # (AUTO) 0.94 x10^3/uL (0.2-0.8); MONOCYTES % (AUTO) 6 % (2-9); NEUTROPHILS # (AUTO) 12.31 x10^3/uL (1.8-6.8); NEUTROPHILS % (AUTO) 83 % (42-75); PLATELET COUNT 443 x10^3/uL (130-400); RED BLOOD COUNT 3.23 x10^6/uL (3.82-5.3); RED CELL DISTRIBUTION WIDTH 16.8 % (9.6-15.2)
[2018-04-27] MEDS: METOPROLOL TARTRATE 25 MG TABLET PO SCH ×2 (06:08→17:29)
[2018-04-27] MEDS ORDERED: ALBUTEROL/IPRATROPIUM 2.5MG/0.5MG, 3 ML NPPB PRN (07:00)
[2018-04-27] MEDS: INSULIN LISPRO 100 UNITS/ML, PEN SQ-INSULIN SCH ×4 (07:15→21:00)
[2018-04-27] MEDS: DOCUSATE 100 MG CAPSULE PO SCH (08:04)
[2018-04-27] MEDS: POTASSIUM CHLORIDE 20 MEQ TAB.ER.PRT PO SCH ×2 (08:05→17:29)
[2018-04-27] MEDS: FINASTERIDE 5 MG TABLET PO SCH (08:05)
[2018-04-27] MEDS: FENOFIBRATE 145 MG TABLET PO SCH (08:05)
[2018-04-27] MEDS: TAMSULOSIN 0.4 MG CAP.ER.24H PO SCH ×2 (08:05→20:14)
[2018-04-27] MEDS: LORATADINE 10 MG TABLET PO SCH (08:06)
[2018-04-27] MEDS: AMIODARONE 200 MG TABLET PO SCH (08:06)
[2018-04-27] MEDS: SODIUM CHLORIDE FLUSH 10ML SYR IVF SCH ×2 (08:06→20:15)
[2018-04-27] MEDS: ASPIRIN 81 MG TABLET EC PO SCH (08:06)
[2018-04-27] MEDS: FUROSEMIDE 40 MG/4 ML IV SCH ×2 (08:06→17:29)
[2018-04-27] MEDS: GUAIFENESIN ER 600 MG TABLET PO SCH ×2 (08:25→20:14)
[2018-04-27] MEDS: GLIPizide ER 5 MG TABLET PO SCH (08:25)
[2018-04-27] MEDS: LACTOBACILLUS CHEW TABLET PO SCH ×3 (08:25→20:14)
[2018-04-27] MEDS: WARFARIN BIOPROSTHETIC VALVE PROTOCOL 2-3 XX SCH (08:26)
[2018-04-27] MEDS ORDERED: ALBUMIN HUMAN 5% 500 ML IV ONE (08:30)
[2018-04-27] MEDS: LINEZOLID PMX 600MG/300ML 300 ML IVPB SCH ×2 (09:07→20:15)
[2018-04-27] MEDS ORDERED: ALBUMIN HUMAN 25% 100 ML IV ONE (09:30)
[2018-04-27] MEDS ORDERED: ALBUMIN HUMAN 25% 50 ML IV ONE (09:30)
[2018-04-27] MEDS: FLUCONAZOLE 200 MG/100 ML 100 ML IV SCH (11:37)
[2018-04-27] MEDS: MICAFUNGIN 100 MG in SODIUM CHLORIDE 0.9% 100 ML IV SCH (12:32)
[2018-04-27] MEDS: OXYcodone IR 5MG TABLET PO PRN (17:28)
[2018-04-27] MEDS ORDERED: FENTANYL PF 100 MCG/2ML IVPush PRN (18:00)
[2018-04-27] MEDS ORDERED: WARFARIN 7.5 MG TABLET PO-COUM SCH (18:00)
[2018-04-27] MEDS: MELATONIN 5 MG TABLET PO SCH (20:14)
[2018-04-27] MEDS: ATORVASTATIN 20 MG TABLET PO SCH (20:14)
[2018-04-28] MEDS: PIPERACILLIN/TAZO/PMX 4.5GM 100 ML IV SCH ×2 (00:39→06:40)
[2018-04-28 04:58] LABS: BASOPHILS # (AUTO) 0.05 x10^3/uL (0-0.1); BASOPHILS % (AUTO) 1 % (0-1); EOSINOPHILS # (AUTO) 0.16 x10^3/uL (0-0.4); EOSINOPHILS % (AUTO) 2 % (1-7); LYMPHOCYTES % (AUTO) 12 % (22-44); MD NO; MEAN CORPUSCULAR HEMOGLOBIN 29.9 pg (27.0-34.8); MEAN CORPUSCULAR HGB CONC 32.8 g/dL (32.4-35.8); MEAN PLATELET VOLUME 8.1 fL (7.4-10.4); MONOCYTES # (AUTO) 0.96 x10^3/uL (0.2-0.8); MONOCYTES % (AUTO) 9 % (2-9); NEUTROPHILS # (AUTO) 8.34 x10^3/uL (1.8-6.8); NEUTROPHILS % (AUTO) 77 % (42-75); PLATELET COUNT 416 x10^3/uL (130-400); RED CELL DISTRIBUTION WIDTH 17.3 % (9.6-15.2)
[2018-04-28 05:00] LABS: INTERNATIONAL NORMALIZED RATIO 2.85 (0.93-1.1); PROTHROMBIN TIME 28.8 Seconds (9.6-11.5)
[2018-04-28 05:05] LABS: ANION GAP 4 mmol/L (5-15); CALCIUM 8.1 mg/dL (8.5-10.1); CHLORIDE 101 mmol/L (98-107); CREATININE 1.46 mg/dL (0.55-1.02)
[2018-04-28] MEDS: METOPROLOL TARTRATE 25 MG TABLET PO SCH ×2 (06:40→16:44)
[2018-04-28] MEDS: INSULIN LISPRO 100 UNITS/ML, PEN SQ-INSULIN SCH ×4 (07:00→20:30)
[2018-04-28] MEDS: FINASTERIDE 5 MG TABLET PO SCH (08:45)
[2018-04-28] MEDS: LACTOBACILLUS CHEW TABLET PO SCH ×3 (08:46→20:26)
[2018-04-28] MEDS: GUAIFENESIN ER 600 MG TABLET PO SCH ×2 (08:46→20:26)
[2018-04-28] MEDS: FUROSEMIDE 40 MG/4 ML IV SCH ×2 (08:46→16:41)
[2018-04-28] MEDS: ASPIRIN 81 MG TABLET EC PO SCH (08:46)
[2018-04-28] MEDS: GLIPizide ER 5 MG TABLET PO SCH (08:46)
[2018-04-28] MEDS: TAMSULOSIN 0.4 MG CAP.ER.24H PO SCH ×2 (08:46→20:26)
[2018-04-28] MEDS: FENOFIBRATE 145 MG TABLET PO SCH (08:46)
[2018-04-28] MEDS: SODIUM CHLORIDE FLUSH 10ML SYR IVF SCH ×2 (08:47→20:27)
[2018-04-28] MEDS: DOCUSATE 100 MG CAPSULE PO SCH (08:47)
[2018-04-28] MEDS: POTASSIUM CHLORIDE 20 MEQ TAB.ER.PRT PO SCH ×2 (08:47→16:39)
[2018-04-28] MEDS: AMIODARONE 200 MG TABLET PO SCH (08:47)
[2018-04-28] MEDS: LORATADINE 10 MG TABLET PO SCH (08:47)
[2018-04-28] MEDS: WARFARIN BIOPROSTHETIC VALVE PROTOCOL 2-3 XX SCH (08:48)
[2018-04-28] MEDS: MICAFUNGIN 100 MG in SODIUM CHLORIDE 0.9% 100 ML IV SCH (11:00)
[2018-04-28 14:20] VITALS: BP 135/77
[2018-04-28] MEDS ORDERED: WARFARIN 1 MG TABLET PO-COUM SCH (18:00)
[2018-04-28 19:17] VITALS: BP 126/84
[2018-04-28] MEDS: OXYcodone IR 5MG TABLET PO PRN (19:37)
[2018-04-28] MEDS: MELATONIN 5 MG TABLET PO SCH (20:26)
[2018-04-28] MEDS: ATORVASTATIN 20 MG TABLET PO SCH (20:26)
[2018-04-29 03:01] VITALS: BP 128/78
[2018-04-29 03:04] LABS: BASOPHILS # (AUTO) 0.03 x10^3/uL (0-0.1); BASOPHILS % (AUTO) 0 % (0-1); EOSINOPHILS % (AUTO) 3 % (1-7); LYMPHOCYTES # (AUTO) 1.51 x10^3/uL (1-3.4); LYMPHOCYTES % (AUTO) 16 % (22-44); MD NO; MEAN CORPUSCULAR HEMOGLOBIN 28.8 pg (27.0-34.8); MEAN CORPUSCULAR VOLUME 90.2 fL (80-100); MEAN PLATELET VOLUME 7.9 fL (7.4-10.4); MONOCYTES # (AUTO) 1.02 x10^3/uL (0.2-0.8); MONOCYTES % (AUTO) 11 % (2-9); NEUTROPHILS # (AUTO) 6.87 x10^3/uL (1.8-6.8); NEUTROPHILS % (AUTO) 71 % (42-75); PLATELET COUNT 443 x10^3/uL (130-400); RED BLOOD COUNT 3.56 x10^6/uL (3.82-5.3); RED CELL DISTRIBUTION WIDTH 16.8 % (9.6-15.2)
[2018-04-29 03:15] LABS: ANION GAP 5 mmol/L (5-15); CALCIUM 8.8 mg/dL (8.5-10.1); CHLORIDE 102 mmol/L (98-107); CREATININE 1.51 mg/dL (0.55-1.02)
[2018-04-29 03:49] LABS: INTERNATIONAL NORMALIZED RATIO 5.74 (0.93-1.1); PROTHROMBIN TIME 57.1 Seconds (9.6-11.5)
[2018-04-29] MEDS: METOPROLOL TARTRATE 25 MG TABLET PO SCH ×2 (05:52→16:34)
[2018-04-29 05:54] VITALS: BP 136/78
[2018-04-29] MEDS: INSULIN LISPRO 100 UNITS/ML, PEN SQ-INSULIN SCH ×4 (07:00→20:08)
[2018-04-29] MEDS: DOCUSATE 100 MG CAPSULE PO SCH (07:26)
[2018-04-29 07:30] VITALS: BP 131/73
[2018-04-29] MEDS: GLIPizide ER 5 MG TABLET PO SCH (07:53)
[2018-04-29] MEDS: ASPIRIN 81 MG TABLET EC PO SCH (07:53)
[2018-04-29] MEDS: AMIODARONE 200 MG TABLET PO SCH (07:53)
[2018-04-29] MEDS: POTASSIUM CHLORIDE 20 MEQ TAB.ER.PRT PO SCH ×2 (07:53→16:34)
[2018-04-29] MEDS: LORATADINE 10 MG TABLET PO SCH (07:53)
[2018-04-29] MEDS: GUAIFENESIN ER 600 MG TABLET PO SCH ×2 (07:53→20:08)
[2018-04-29] MEDS: FENOFIBRATE 145 MG TABLET PO SCH (07:53)
[2018-04-29] MEDS: TAMSULOSIN 0.4 MG CAP.ER.24H PO SCH ×2 (07:53→20:08)
[2018-04-29] MEDS: LACTOBACILLUS CHEW TABLET PO SCH ×3 (07:53→20:08)
[2018-04-29] MEDS: FINASTERIDE 5 MG TABLET PO SCH (07:54)
[2018-04-29] MEDS: FUROSEMIDE 40 MG/4 ML IV SCH ×2 (07:54→16:34)
[2018-04-29] MEDS: SODIUM CHLORIDE FLUSH 10ML SYR IVF SCH ×2 (07:54→20:09)
[2018-04-29] MEDS: MICAFUNGIN 100 MG in SODIUM CHLORIDE 0.9% 100 ML IV SCH (11:43)
[2018-04-29 14:09] VITALS: BP 147/84
[2018-04-29] MEDS: OXYcodone IR 5MG TABLET PO PRN (17:57)
[2018-04-29] MEDS: ATORVASTATIN 20 MG TABLET PO SCH (20:08)
[2018-04-29] MEDS: MELATONIN 5 MG TABLET PO SCH (20:08)
[2018-04-29 20:19] VITALS: BP 117/74
[2018-04-30 01:45] VITALS: BP 133/73
[2018-04-30 03:06] LABS: BASOPHILS # (AUTO) 0.04 x10^3/uL (0-0.1); BASOPHILS % (AUTO) 1 % (0-1); EOSINOPHILS # (AUTO) 0.19 x10^3/uL (0-0.4); EOSINOPHILS % (AUTO) 2 % (1-7); LYMPHOCYTES # (AUTO) 1.74 x10^3/uL (1-3.4); LYMPHOCYTES % (AUTO) 20 % (22-44); MD NO; MEAN CORPUSCULAR HEMOGLOBIN 29.1 pg (27.0-34.8); MEAN CORPUSCULAR HGB CONC 32.4 g/dL (32.4-35.8); MEAN CORPUSCULAR VOLUME 89.9 fL (80-100); MONOCYTES # (AUTO) 0.84 x10^3/uL (0.2-0.8); MONOCYTES % (AUTO) 9 % (2-9); NEUTROPHILS # (AUTO) 6.07 x10^3/uL (1.8-6.8); NEUTROPHILS % (AUTO) 68 % (42-75); PLATELET COUNT 443 x10^3/uL (130-400); RED BLOOD COUNT 3.62 x10^6/uL (3.82-5.3); RED CELL DISTRIBUTION WIDTH 17.2 % (9.6-15.2)
[2018-04-30 03:15] LABS: ANION GAP 6 mmol/L (5-15); CALCIUM 8.8 mg/dL (8.5-10.1); CHLORIDE 100 mmol/L (98-107); CREATININE 1.51 mg/dL (0.55-1.02)
[2018-04-30 03:19] LABS: INTERNATIONAL NORMALIZED RATIO 4.82 (0.93-1.1); PROTHROMBIN TIME 48.1 Seconds (9.6-11.5)
[2018-04-30] MEDS: METOPROLOL TARTRATE 25 MG TABLET PO SCH (05:55)
[2018-04-30] MEDS: INSULIN LISPRO 100 UNITS/ML, PEN SQ-INSULIN SCH ×2 (07:00→11:00)
[2018-04-30 07:02] VITALS: BP 138/81
[2018-04-30] MEDS: GUAIFENESIN ER 600 MG TABLET PO SCH (08:06)
[2018-04-30] MEDS: DOCUSATE 100 MG CAPSULE PO SCH (08:06)
[2018-04-30] MEDS: GLIPizide ER 5 MG TABLET PO SCH (08:06)
[2018-04-30] MEDS: FUROSEMIDE 40 MG/4 ML IV SCH (08:06)
[2018-04-30] MEDS: POTASSIUM CHLORIDE 20 MEQ TAB.ER.PRT PO SCH (08:07)
[2018-04-30] MEDS: TAMSULOSIN 0.4 MG CAP.ER.24H PO SCH (08:08)
[2018-04-30] MEDS: AMIODARONE 200 MG TABLET PO SCH (08:08)
[2018-04-30] MEDS: ASPIRIN 81 MG TABLET EC PO SCH (08:08)
[2018-04-30] MEDS: LORATADINE 10 MG TABLET PO SCH (08:09)
[2018-04-30] MEDS: FINASTERIDE 5 MG TABLET PO SCH (08:09)
[2018-04-30] MEDS: LACTOBACILLUS CHEW TABLET PO SCH (08:09)
[2018-04-30] MEDS: SODIUM CHLORIDE FLUSH 10ML SYR IVF SCH (08:09)
[2018-04-30] MEDS: FENOFIBRATE 145 MG TABLET PO SCH (08:12)
[2018-04-30] MEDS ORDERED: ONDA4VIA4 PO (09:24)
[2018-04-30] MEDS ORDERED: POTA20TA6 PO (09:24)
[2018-04-30] MEDS ORDERED: ACET650S12 PR (09:24)
[2018-04-30] MEDS ORDERED: ACID1TAB7 PO (09:24)
[2018-04-30] MEDS ORDERED: INSU100I11 SQ-INSULIN (09:24)
[2018-04-30] MEDS ORDERED: ACET325T14 PO (09:24)
[2018-04-30] MEDS ORDERED: DEXT4TAB PO (09:24)
[2018-04-30] MEDS ORDERED: BISA10SU65 PR (09:24)
[2018-04-30] MEDS ORDERED: ASPI-621 PO (09:24)
[2018-04-30] MEDS ORDERED: MAGN400O7 PO (09:24)
[2018-04-30] MEDS ORDERED: GUAI600T31 PO (09:24)
[2018-04-30] MEDS ORDERED: BISA5TAB5 PO (09:24)
[2018-04-30] MEDS ORDERED: MELA5TAB19 PO (09:24)
[2018-04-30] MEDS ORDERED: IPRA3AMP NPPB (09:24)
[2018-04-30] MEDS ORDERED: LORA10TA75 PO (09:24)
[2018-04-30] MEDS ORDERED: ALPR0.254 PO (09:24)
[2018-04-30] MEDS ORDERED: MORP15TA3 PO (09:24)
[2018-04-30] MEDS ORDERED: AMIO200T42 PO (09:24)
[2018-04-30] MEDS ORDERED: FURO10VI37 PO (09:24)
[2018-04-30] MEDS ORDERED: DOCU-131 PO (09:24)
[2018-04-30 12:27] VITALS: BP 136/74
[2018-04-30] MEDS: MICAFUNGIN 100 MG in SODIUM CHLORIDE 0.9% 100 ML IV SCH (12:30)
== END 2018-04-30 13:32 | DRG 219 ==
LOC: 5SO 04:08 → CCU 08:56 → 5SO 04-17 08:26 → CCU 04-20 06:03 → 5SO 04-28 12:56
PROVIDERS: ADMIT Thoracic Surgery (Cardiothoracic Vascular Surgery); ATTEND Thoracic Surgery (Cardiothoracic Vascular Surgery)
PROC: 02RF08Z Replacement of Aortic Valve with Zooplastic Tissue, Open Approach (ICD-10-PCS; 2018-04-11)
PROC: 02VX3DZ Restriction of Thoracic Aorta, Ascending/Arch with Intraluminal Device, Percutaneous Approach (ICD-10-PCS; 2018-04-11)
PROC: B245ZZ4 Ultrasonography of Left Heart, Transesophageal (ICD-10-PCS; 2018-04-11)
PROC: 5A1221Z Performance of Cardiac Output, Continuous (ICD-10-PCS; 2018-04-11)
PROC: 5A1955Z Respiratory Ventilation, Greater than 96 Consecutive Hours (ICD-10-PCS; 2018-04-11)
PROC: 0BH18EZ Insertion of Endotracheal Airway into Trachea, Via Natural or Artificial Opening Endoscopic (ICD-10-PCS; 2018-04-11)
PROC: 30233L1 Transfusion of Nonautologous Fresh Plasma into Peripheral Vein, Percutaneous Approach (ICD-10-PCS; 2018-04-11)
PROC: 30233K1 Transfusion of Nonautologous Frozen Plasma into Peripheral Vein, Percutaneous Approach (ICD-10-PCS; 2018-04-11)
PROC: 6A550Z2 Pheresis of Platelets, Single (ICD-10-PCS; 2018-04-11)
PROC: 02100Z9 Bypass Coronary Artery, One Artery from Left Internal Mammary, Open Approach (ICD-10-PCS; principal; 2018-04-11 08:00)
PROC: 0T9B70Z Drainage of Bladder with Drainage Device, Via Natural or Artificial Opening (ICD-10-PCS; 2018-04-12)
PROC: 0T9B70Z Drainage of Bladder with Drainage Device, Via Natural or Artificial Opening (ICD-10-PCS; 2018-04-12)
PROC: 02HV33Z Insertion of Infusion Device into Superior Vena Cava, Percutaneous Approach (ICD-10-PCS; 2018-04-20)
PROC: B548ZZA Ultrasonography of Superior Vena Cava, Guidance (ICD-10-PCS; 2018-04-20)
PROC: 6A551Z3 Pheresis of Plasma, Multiple (ICD-10-PCS; 2018-04-22)
PROC: 0PD00ZZ Extraction of Sternum, Open Approach (ICD-10-PCS; 2018-04-23)
PROC: 0PQ00ZZ Repair Sternum, Open Approach (ICD-10-PCS; 2018-04-23)
PROC: 0W9B00Z Drainage of Left Pleural Cavity with Drainage Device, Open Approach (ICD-10-PCS; 2018-04-23)
PROC: 0W9900Z Drainage of Right Pleural Cavity with Drainage Device, Open Approach (ICD-10-PCS; 2018-04-23)
PROC: 30233N1 Transfusion of Nonautologous Red Blood Cells into Peripheral Vein, Percutaneous Approach (ICD-10-PCS; 2018-04-24)
DX: I35.0 Nonrheumatic aortic (valve) stenosis (principal); I50.31 Acute diastolic (congestive) heart failure; J18.9 Pneumonia, unspecified organism; D62 Acute posthemorrhagic anemia; B37.49 Other urogenital candidiasis; D68.69 Other thrombophilia; I13.0 Hypertensive heart and chronic kidney disease with heart failure and stage 1 through stage 4 chronic kidney disease, or unspecified chronic kidney disease; J98.11 Atelectasis; T81.30XA Disruption of wound, unspecified, initial encounter; E11.22 Type 2 diabetes mellitus with diabetic chronic kidney disease; E78.5 Hyperlipidemia, unspecified; E87.6 Hypokalemia; F17.210 Nicotine dependence, cigarettes, uncomplicated; F43.21 Adjustment disorder with depressed mood; F64.9 Gender identity disorder, unspecified; I48.0 Paroxysmal atrial fibrillation; N18.9 Chronic kidney disease, unspecified; I71.2 Thoracic aortic aneurysm, without rupture; I25.10 Atherosclerotic heart disease of native coronary artery without angina pectoris; I95.9 Hypotension, unspecified; R09.02 Hypoxemia; Z51.5 Encounter for palliative care; Z79.01 Long term (current) use of anticoagulants; Z91.19 Patient's noncompliance with other medical treatment and regimen
CPT/HCPCS: 32555; 36415; 36569; 36600; 71045; 71046; 71250; 74018; 76937; 77001; 80048; 80053; 81001; 82040; 82330; 82800; 82803; 82810; 82947; 82962; 83036; 83735; 84100; 84132; 84145; 84295; 85014; 85018; 85025; 85049; 85347; 85610; 85730; 86850; 86900; 86923; 87070; 87075; 87081; 87086; 87102; 87106; 87205; 88304; 88305; 93005; 93312; 93321; 93325; 93880; 93970; 94002; 94003; 94150; 94640; C1768; J0697; J1644; J1650; J1815; J1940; J2020; J2248; J2250; J2405; J2543; J2704; J2720; J3010; J3370; J3475; J3480; J3490; J7613; J7620; P9045; P9047; C1751; J0171; J1450; J2270; J2370; J2440; J7030; J7040; J7050; J7120; P9016; P9017; P9035

== ENCOUNTER → 2019-01-22 | Outpatient (CLI) | payer MEDICARE ==
[~2019-01-22] MED LIST changes: +ACET325T14 PO; +ACET650S12 PR; +ACID1TAB7 PO; +ALPR0.254 PO; +AMIO200T42 PO; +AMLO-150 PO; -AMLO5TAB2 PO; -ASPI-621 PO; +ASPI81TA45 PO; +ATOR20TA37 PO; -ATOR20TA9 PO; +BISA10SU65 PR; +BISA5TAB5 PO; +DEXT-230 PO; +DOCU-131 PO; +FURO10VI37 PO; +GUAI600T31 PO; +INSU100I11 SQ-INSULIN; +IPRA3AMP30 NPPB; +LORA10TA75 PO; +MAGN400O7 PO; +MELA5TAB19 PO; +MORP15TA3 PO; +ONDA4VIA8 PO; +POTA20TA6 PO
[2019-01-22 17:02] LABS: ANION GAP 8 mmol/L (5-15); CALCIUM 9.4 mg/dL (8.5-10.1); CHLORIDE 109 mmol/L (98-107)
[2019-01-22 17:03] LABS: CREATININE 1.69 mg/dL (0.55-1.02)
== END | disposition home or self-care (01) ==
LOC: CFH 12:04
PROVIDERS: ATTEND Internal Medicine
DX: I11.9 Hypertensive heart disease without heart failure (principal); E11.9 Type 2 diabetes mellitus without complications; E78.2 Mixed hyperlipidemia; I48.0 Paroxysmal atrial fibrillation; E78.5 Hyperlipidemia, unspecified; Z95.1 Presence of aortocoronary bypass graft; Z95.2 Presence of prosthetic heart valve; Z87.891 Personal history of nicotine dependence
CPT/HCPCS: 36415; 80048; 93306

== ENCOUNTER → 2020-03-11 | Outpatient (CLI) | payer MEDICARE ==
[~2020-03-11] MED LIST changes: +MELA5TAB14 PO; -MELA5TAB19 PO; +MORP-29 PO; -MORP15TA3 PO; +ONDA4VIA60 PO; -ONDA4VIA8 PO
== END | disposition home or self-care (01) ==
LOC: CFH 12:10
PROVIDERS: ATTEND Physician Assistant Medical
DX: S22.20XA Unspecified fracture of sternum, initial encounter for closed fracture (principal); X58.XXXA Exposure to other specified factors, initial encounter; Y93.89 Activity, other specified; Y92.89 Other specified places as the place of occurrence of the external cause; Y99.8 Other external cause status; Z95.1 Presence of aortocoronary bypass graft; Z95.2 Presence of prosthetic heart valve
CPT/HCPCS: 71120

== ENCOUNTER 2021-08-02 13:36 | Outpatient (CLI) | payer MEDICARE ==
[~2021-08-02 13:36] MED LIST changes: -DEXT-230 PO; +DEXT4TAB31 PO; -ENAL20TA PO; +ENAL20TA9 PO; +POTA-143 PO; -POTA20TA6 PO
== END 2021-08-02 23:59 | disposition home or self-care (01) ==
LOC: CVU 13:36
PROVIDERS: ATTEND Internal Medicine Cardiovascular Disease
DX: I08.8 Other rheumatic multiple valve diseases (principal); I11.9 Hypertensive heart disease without heart failure; Z95.2 Presence of prosthetic heart valve
CPT/HCPCS: 93306